=== PATIENT | female | born 1980 | race Asian ===

== ENCOUNTER 2019-07-15 10:04 | Inpatient (IN) | payer OTHER ==
[2019-07-15] MEDS: LACTATED RINGERS 1,000 ML IV STA ×2 (12:27→16:58)
--- NOTE | 2019-07-15 14:46 | ED Physician Documentation ---
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 She has had some persistence of some bleeding she has not had cramping. She did have some cramping last week. Review of Systems Constitutional: reports: Fatigue. denies: Fever Eyes: denies: Decreased vision Ears: denies: Ear pain Nose: denies: Congestion Throat: denies: Sore throat Respiratory: denies: Cough GI: reports: Nausea. denies: Abdominal Pain, Vomiting : denies: Dysuria Skin: denies: Rash Musculoskeletal: reports: Back pain. denies: Neck pain PD PAST MEDICAL HISTORY - Past Surgical History Past Surgical History: No - Allergies Allergies/Adverse Reactions: Allergies Allergy/AdvReac Type Severity Reaction Status Date / Time No Known Drug Allergies Allergy Verified 11/03/16 09:48 - Social History Does the pt smoke?: No Smoking Status: Never smoker Does the pt drink ETOH?: No Does the pt have substance abuse?: No PD ED PE NORMAL - Vitals Vital signs reviewed: Yes (tachy and hypertensive marked. ) - General General: Alert and oriented X 3, Well developed/nourished, Other (in tears and anxious) - HEENT HEENT: Atraumatic, PERRL, EOMI - Respiratory Respiratory: No respiratory distress - Female Female : Sailing Officer present (edvin), Other (There is a firm part palpable just inside the vagina) - Back Back: No CVA TTP - Derm Derm: Normal color, Warm and dry, No rash - Extremities Extremities: No deformity, No edema - Neuro Neuro: Alert and oriented X 3, video game tester 2-12 intact, No motor deficit, No sensory deficit, Normal speech Eye Opening: Spontaneous Motor: Obeys Commands Verbal: Oriented GCS Score: 15 - Psych Psych: Other (mood is anxoius and the affect is labile with crying ) Results - Vitals Vitals: Vital Signs - 24 hr 07/15/19 07/15/19 07/15/19 10:22 11:00 11:15 Temperature 36.8 C Heart Rate 134 H 125 H 119 H Respiratory 20 17 21 Rate Blood Pressure 152/113 H 128/80 128/80 O2 Saturation 97 98 97 07/15/19 07/15/19 07/15/19 11:30 12:00 12:06 Temperature Heart Rate 111 H 117 H 110 H Respiratory 20 18 17 Rate Blood Pressure 142/90 H 144/83 H 144/83 H O2 Saturation 98 98 99 07/15/19 07/15/19 07/15/19 13:00 15:13 16:00 Temperature Heart Rate 112 H 100 120 H Respiratory 17 13 17 Rate Blood Pressure 133/81 H 131/88 H 129/84 H O2 Saturation 99 98 98 Oxygen O2 Source Room air - Labs Labs: Laboratory Tests 07/15/19 15:40 WBC 10.3 RBC 5.00 Hgb 13.2 Hct 41.3 MCV 82.6 MCH 26.4 L MCHC 32.0 RDW 18.9 H Plt Count 217 MPV 11.0 H Neut # (Auto) 7.6 H Lymph # (Auto) 2.0 Wy[place] # (Auto) 0.4 Eos # (Auto) 0.2 Baso # (Auto) 0.0 Absolute Nucleated RBC 0.00 Nucleated RBC % 0.0 - Rads (name of study) ob limited Radiology: Prelim report reviewed (Impression: 1. Chavez intrauterine with established gestational age of 17 weeks 6 days. 2. No cardiac activity detected. Findings suggestive of demise. 3. KAEL: 3.5 cm. oligohydramnios.), EMP read indepedently, See rad report Procedures - Bedside sono Bedside sono by EMP: With use of bedside ultrasound the pelvis is imaged there is a fetus present with a biparietal diameter suggesting a gestational age of 17 weeks and there is no heart activity. There is no motion. PD MEDICAL DECISION MAKING - ED course Complexity details: reviewed old records, reviewed results, re-evaluated patient, considered differential, d/w patient, d/w family, d/w assessment consultant (Dr Toribio [facility] maternal recommends induction as the D&E is an elective scheduled procedure and she will likely deliver spontaeously. ) ED course: 38-year old female with an estimated gestational age of 18 weeks presents with vaginal bleeding and palpable mass in the vagina as well as what appear to be rupture of membranes. On bedside ultrasound she is found to have a nonviable fetus with an estimated gestational age of [address] Contreras our OCCUPATIONAL HEALTH AND SAFETY OFFICER was consulted in the case and after consultation with the patient the patient is preferring a D&E. She is averse to the pain and the emotional toil of labor. We attempted to contact an institution capable of performing 2nd trimester D&E and found that this is not available to be done emergently and not available except at [facility] or . The consulting physician at [facility] Dr. Oliva recommends the patient attempt induction as a procedure would not likely be done for several days. The patient is re-evaluated and she is understanding of the limitations and request we do this as and induction here. Dr. Contreras is consulted again in the case and graciously agrees to care for the patient on the obstetrical collins. Departure - Departure Disposition: [facility] DC/Xfer Clinical Impression: demise before 20 weeks with retention of fetus Discharge Date/Time: 07/15/19 16:10
[2019-07-15] MEDS ORDERED: SODIUM CHLORIDE FLUSH 0.9% 10 ML SYRINGE IVP PRN (15:38)
[2019-07-15] MEDS ORDERED: ONDANSETRON 4 MG/2 ML VIAL IVP PRN (15:38)
[2019-07-15] MEDS ORDERED: ACETAMINOPHEN 1,000 MG/100 ML 100 ML IV PRN (15:58)
[2019-07-15] MEDS ORDERED: GABAPENTIN 300 MG CAPSULE PO STA (15:59)
[2019-07-15] MEDS ORDERED: KETOROLAC 30 MG/ML VIAL IVP PRN (15:59)
[2019-07-15] MEDS ORDERED: LACTATED RINGERS 1,000 ML IV SCH (16:00)
[2019-07-15] MEDS ORDERED: miSOPROStol 100 MCG TABLET VG SCH (16:00)
[2019-07-15] MEDS ORDERED: HYDROmorphone 1 MG/ML CARPUJECT IVP PRN (16:01)
--- NOTE | 2019-07-15 16:07 | HISTORY & PHYSICAL EXAMINATION ---
HPI - Admitted From Admitted from: ED - History of Present Illness HPI Comment/Other: Chief complaint: demise History chief complaint: The patient is a well-developed, well-nourished, 38-year-old female who is a 2 para 1-0-0-1. She is reported to be 16 to 18 weeks . She stated that when she woke this morning she was feeling a lot of pelvic pressure. She then noticed something firm protruding from the vagina. She then noted spontaneous rupture of membranes. She has not had any cramping and denies any vaginal bleeding. She was seen in the emergency room where a bedside ultrasound was performed which revealed a demise.She had no problems with her first and delivered a full-term vaginally. She denies any fevers, chills, nausea, vomiting the patient or diarrhea.To date she has not had any problems with with this . She has been followed at the [facility] for her . She denies any history of pelvic inflammatory disease, gonorrhea, syphilis, chlamydia, herpes, recurrent vaginal infections, trichomonas or abnormal Pap smears. PMH/PSH - Past Medical History Cardiovascular: positive: None Respiratory: positive: None Neuro: positive: None Endocrine/Autoimmune: positive: None GI: positive: None INVESTMENT ASSOCIATE: positive: None : positive: None HEENT: positive: None Psych: positive: None Musculoskeletal: positive: None Derm: positive: None MRSA Hx?: No - Past Surgical History Other past surgical history: None Social & Family Hx - Social History Does the pt smoke?: No Smoking Status: Never smoker Does the pt drink ETOH?: No Does the pt have substance abuse?: No Meds/Allgy - Allergies Allergies/Adverse Reactions: Allergies Allergy/AdvReac Type Severity Reaction Status Date / Time No Known Drug Allergies Allergy Verified 11/03/16 09:48 Review of Systems - Constitutional Constitutional: denies: Fatigue, Fever, Chills, Malaise, Weakness - Eyes Eyes: denies: Pain, Irritation, Amaurosis, Blurred vision, Spots in vision - Ears, Nose & Throat Ears, Nose & Throat: denies: Ear pain, Hearing loss, Hearing aids, Tinnitus, Nasal pain, Nasal discharge, Nosebleeds, Nasal obstruction, Sore throat, Hoarseness, Mouth lesions - Cardiovascular Cariovascular: denies: Irregular heart rate, Palpitations, Chest pain, Edema, Syncope - Respiratory Respiratory: denies: Cough, Sputum production, Wheezing, Hemoptysis, Orthopnea, SOB at rest, SOB with exertion - Gastrointestinal Gastrointestinal: denies: Abdominal pain, Abdominal distention, Constipation, Diarrhea, Change in bowel habits, Rectal bleeding, Nausea, Vomiting - Genitourinary Genitourinary: denies: Dysuria, Frequency, Urgency, Hematuria, Incontinence, Flank pain - Musculoskeletal Musculoskeletal: denies: Muscle pain, Back pain, Muscle aches, Stiffness - Integumentary Integumentary: denies: Rash, Pruritis, Lesions, Lumps - Neurological Neurological: denies: General weakness, Focal weakness, Headache, Dizziness, Numbness - Psychiatric Psychiatric: reports: Depression, Anxiety. denies: Suicidal, Delusions, Hallucinations - Endocrine Endocrine: denies: Polyuria, Polydypsia, Polyphagia, Intolerance to cold, Intolerance to heat - Hematologic/Lymphatic Hematologic/Lymphatic: denies: Anemia, Bruising, Petechiae, Blood clots, Lymphadenopathy Exam - Vital Signs Reviewed Vital Signs: Yes Vital Signs: Vital Signs x48h Temp Pulse Resp BP Pulse Ox 07/15/19 15:13 100 13 131/88 H 98 07/15/19 13:00 112 H 17 133/81 H 99 07/15/19 12:06 110 H 17 144/83 H 99 07/15/19 12:00 117 H 18 144/83 H 98 07/15/19 11:30 111 H 20 142/90 H 98 07/15/19 11:15 119 H 21 128/80 97 07/15/19 11:00 125 H 17 128/80 98 07/15/19 10:22 36.8 C 134 H 20 152/113 H 97 - Physical Exam General Appearance: positive: Mild distress Eyes Bilateral: positive: PERRL, EOMI, No lid inflammation, Conjunctivae nml Neck: positive: Nml inspection, Thyroid nml, No JVD, Trachea midline. negative: Lymphadenopathy (R), Lymphadenopathy (L) Respiratory: positive: Chest non-tender, No respiratory distress, Breath sounds nml. negative: Wheezes, Rales, Rhonchi Cardiovascular: positive: Regular rate & rhythm, No murmur, No gallop Abdomen: positive: Non-tender, No organomegaly, Nml bowel sounds, No distention. negative: Tenderness, Guarding, Rebound Skin: positive: Color nml, No rash, Warm, Dry Extremities: positive: Non-tender, Nml appearance, No pedal edema. negative: Calf tenderness Neurologic/Psychiatric: positive: Oriented x3, Mood/affect nml Impression/Plan - Problem List Problem List: Impression: demise at 16 to 18 weeks gestation Plan: I talked to the patient earlier aboutA medical induction using prostaglandins. The patient at first was not interested. The emergency room physician tried to find any facility that may be willing to do a second trimester and he could not find any. Maternal- medicine at [facility] recommended the medical induction of labor. He went to talk to the patient again. The patient then agreed to come in and have this done. She is therefore being admitted for the above said procedure.
[2019-07-15 16:10] LABS: BASOPHILS % (AUTO) 0.3 %; EOSINOPHILS # (AUTO) 0.2 10^3/uL (0.0-0.7); EOSINOPHILS % (AUTO) 2.1 %; HGB - HEMOGLOBIN 13.2 g/dL (12.0-16.0); LYMPHOCYTES % (AUTO) 19.2 %; MEAN CORPUSCULAR HEMOGLOBIN 26.4 pg (27.0-31.0); MEAN CORPUSCULAR VOLUME 82.6 fL (81.0-99.0); MONOCYTES # (AUTO) 0.4 10^3/uL (0.0-1.0); MONOCYTES % (AUTO) 4.1 %; NEUTROPHILS # (AUTO) 7.6 10^3/uL (1.5-6.6); NEUTROPHILS % (AUTO) 74.1 %; PLT - PLATELET COUNT 217 10^3/uL (130-450); RED CELL DISTRIBUTION WIDTH 18.9 % (12.0-15.0); WHITE BLOOD COUNT 10.3 x10^3/uL (4.8-10.8)
--- NOTE | 2019-07-15 16:47 | Ultrasound Report ---
Reason: confirm demise Procedure Date: 07/15/2019 Accession Number: [id number] / [id number] Procedure: US - OB Limited CPT Code: FULL RESULT: EXAM: LIMITED OBSTETRICAL ULTRASOUND EXAM DATE: 07/15/2019 03:22 PM. CLINICAL HISTORY: Confirm demise. COMPARISON: None. TECHNIQUE: Real-time sonographic evaluation of the fetus performed by the national dedicated truck driver. Multiple personal financial representative static images were saved for review. Additional transvaginal imaging to more accurately evaluate cervical length/placental position/etc. DATING: Established EGA 17 weeks 6 days with MARTHA 1 . GENERAL EVALUATION Chavez . No cardiac activity detected. movement: Visualized. Presentation: Breech Placental position: Anterior. Placental cyst measures 1.9 x 1.9 x 2 cm. Amniotic fluid: KAEL 3.5 cm. MVP 1.9 cm. MATERNAL STRUCTURES Cervix is long and closed. There is a anterior mid uterine intramural fibroid measuring 2.5 x 2.5 x 2.7 cm and a posterior lower uterine intramural fibroid measuring 1.9 x 1.6 x 1.5 cm. IMPRESSION: 1. Chavez intrauterine with established gestational age of 17 weeks 6 days. 2. No cardiac activity detected. 3. Findings suggestive of demise. 4. KAEL: 3.5 cm. Oligohydramnios. RADIA
[2019-07-15] MEDS ORDERED: miSOPROStol 200 MCG TABLET VG ONE (17:00)
[2019-07-15] MEDS ORDERED: SODIUM CHLORIDE FLUSH 0.9% 10 ML SYRINGE IVP SCH (17:00)
[2019-07-15] MEDS ORDERED: miSOPROStol 200 MCG TABLET BC SCH (20:00)
[2019-07-15] MEDS ORDERED: OXYTOCIN/DEXTROSE 5 % 30 UNIT/500 ML BAG IV ONE (21:21)
[2019-07-15] MEDS ORDERED: OXYTOCIN/DEXTROSE 5 % 30 UNIT/500 ML BAG IV PRN (21:28)
--- NOTE | 2019-07-15 21:50 | DELIVERY NOTE ---
Delivery Note - Delivery Comments (Free Text/Narrative) Delivery Comments (Free Text/Narrative): The patient was admitted to the OB unit late this afternoon with a known demise at approximately 17 weeks and 6 days.Her cervix was closed and posterior. There was fluid in the vaginal vault. After the patient was admitted she was given some preinduction medications which included IV acetaminophen, IV Toradol and p.o. gabapentin. She was then administered 800 mcg of misoprostol vaginally. The patient soon began to have some mild cramping. She was due for another dose of misoprostol at 400 mcg buccally at 2100 hrs.However the patient began to feel that she was passing the fetus. Indeed at 2102 hrs. she delivered the stillborn 17-week fetus.The fetus was wrapped in a blanket and given to the mother who wished to hold it.The baby appeared to be a male. The placenta was then delivered with ring forceps and gentle traction at 2128 hrs.This appeared intact. The placenta will be sent. The patient was given 30 units of Pitocin IV drip. Her uterus was firming quite well. The cervix and vaginal vault were inspected and no tears were noted. The cervix was intact.The patient actually was quite comfortable. Lochia at this point in time was late.Estimated blood loss was approximately 100 mL's.The baby was allowed to remain with the mother at this point in the LDRP.She did tolerate the procedure quite well.She was now in stable condition.
[2019-07-15] MEDS ORDERED: IBUPROFEN 600 MG TABLET PO SCH (22:00)
[2019-07-15] MEDS: ACETAMINOPHEN 500 MG TABLET PO SCH (23:18)
--- NOTE | 2019-07-16 07:38 | PROVIDER PROGRESS NOTE ---
Subjective - Prog Note Date Prog Note Date: 07/16/19 Prog Note Time: 07:34 - Subjective Subjective: The patient is doing fairly well this morning. She did pass another small piece of placental tissue. Her bleeding is light at this time.She is really without any complaint.Would like to see the nephrology social worker this morning to talk with them about how to talk with her child at home about the recent demise. Objective - Vital Signs/Intake & Output Vital Signs: Vital Signs x48h Temp Pulse Resp BP Pulse Ox 07/16/19 01:15 98.4 C H 86 16 119/57 L 98 07/16/19 00:15 97.9 C H 92 16 123/81 H 97 Intake & Output: Intake & Output 07/13/19 07/14/19 07/15/19 07/16/19 23:59 23:59 23:59 23:59 Intake Total 681.233 750 Output Total 400 Balance 681.233 350 - Lab Results Fish Bones: 07/15/19 15:40 Other Labs: Lab Results x24hrs 07/15/19 07/15/19 07/15/19 Range/Units 16:00 15:40 15:40 WBC 10.3 (4.8-10.8) x10^3/uL RBC 5.00 (4.20-5.40) 10^6/uL Hgb 13.2 (12.0-16.0) g/dL Hct 41.3 (37.0-47.0) % MCV 82.6 (81.0-99.0) fL MCH 26.4 L (27.0-31.0) pg MCHC 32.0 (32.0-36.0) g/dL RDW 18.9 H (12.0-15.0) % Plt Count 217 (130-450) 10^3/uL MPV 11.0 H (7.9-10.8) fL Neut # (Auto) 7.6 H (1.5-6.6) 10^3/uL Lymph # (Auto) 2.0 (1.5-3.5) 10^3/uL Bonner # (Auto) 0.4 (0.0-1.0) 10^3/uL Eos # (Auto) 0.2 (0.0-0.7) 10^3/uL Baso # (Auto) 0.0 (0.0-0.1) 10^3/uL Absolute Nucleated RBC 0.00 x10^3/uL Nucleated RBC % 0.0 /100WBC Blood Type O POSITIVE Blood Type Recheck O POSITIVE - Other Results/Comments Other Results/Comments: Uterus: Uterus is firm and nontender 3 fingerbreadths below the umbilicus. Assessment/Plan - Problem List (1) demise before 20 weeks with retention of fetus Impression: Impression: day 1-stable Plan: We are going to allow the patient to be discharged home.She was discharged home with both written and verbal instructions which included such things as: 1. She is to forego any lifting, tampons, douching or intercourse. 2. She is to call if she has temperatures greater than 100.4 or heavy vaginal bright red bleeding. She is also to call if she has any increased intense cramping. 3. She does not drive a car for the next week 4. She is to continue her vitamins and increase her fluids. 5. She may use ibuprofen up to 600 mg p.o. 3 times daily as needed cramping 6. She may take a tub bath if she wishes 7. She is going to follow-up with her normal OB physician at the [facility] next week. I will see her in the office in 4 weeks.She will call sooner if she has problems however.
[2019-07-16 07:58] VITALS: BP 129/64
--- NOTE | 2019-07-16 08:10 | DISCHARGE SUMMARY ---
Physician: Tyler Contreras DO DATE OF ADMISSION: 07/15/2019 DATE OF DISCHARGE: 07/16/2019 ADMITTING DIAGNOSIS: demise at 17 weeks 6 days gestation. DISCHARGE DIAGNOSES 1. demise at 17 weeks 6 days gestation. 2. Delivery of demise at 17 weeks 6 days gestation. PROCEDURES 1. Medical induction of labor. 2. Spontaneous vaginal delivery of demise. LABORATORIES: The patient is O positive. CBC revealed WBCs of 10.3, RBC of 5.0, hemoglobin 13.2, he matocrit 41.3 with 217 platelets. HOSPITAL COURSE: Patient awoke the morning of 07/15/2019 with feeling of pelvic pressure. She then felt that there was something bulging into or out of the vagina. Soon after that, she felt a gush of fluid. She was having some mild cramping, but nothing more than that. She did state that, about a week or so before that, she had a couple of days of spotting with some mild cramping, but again nothi ng more. She denied any fevers, chills, nausea, vomiting, constipation or diarrhea. Because of the fluid gush, she went to the emergency room. In the emergency room, an ultrasound was obtained, which revealed a demise. The patient was at 17 weeks 6 days gestation. The patient at first did no t wish a medical induction of labor and wished a surgical evacuation. The emergency room physician sayda singh try to arrange this for her, but could not find placement. [facility]. He discussed this with her again, and she then did agree to a medical induction of labor and was admitted to the obstetric floor. She was given pre procedural medication and 1 dose of vaginal misoprostol 800 mcg. That was at about 1800 hours. At 2 102 hours, she delivered the 17-week demise. The placenta was then delivered at 2128 hours. O ne is referred to the delivery note for full details. She actually did well throughout the night. I n the morning, she did pass 1 small piece of placental tissue. She, after that, was not bleeding muc h. She was ambulating well and tolerating diet well. She did request a meeting with the social work er so she could find out ways she can talk with her young child about the recent demise. She w as stable, and it was felt she could be discharged home, and she did wish to be discharged to home. DISCHARGE INSTRUCTIONS The patient discharged home with written and verbal instructions including such things as 1. She is to forego any lifting, tampons, douching or intercourse. 2. She is to report any temperatures greater than 100.4 or heavy vaginal bleeding or intense crampin g. 3. She is not to drive a car for the next week. 4. She may use ibuprofen up to 600 mg p.o. t.i.d. for cramping. 5. She is to increase her fluids and continue her vitamins. 6. She may take a tub bath. 7. As long as she does well, she will be seen in the office of her regular OB at the [facility] in 1 week. I will see her for a full visit in 4 weeks. She will call sooner if she has a ny other problems. TD: 07/16/2019 07:48
[2019-07-16] MEDS: ACETAMINOPHEN 500 MG TABLET PO SCH (09:00)
== END 2019-07-16 10:00 | disposition home or self-care (01) | DRG 807 ==
LOC: ED 10:04 → FBP 16:04
PROVIDERS: ADMIT Obstetrics & Gynecology; ATTEND Obstetrics & Gynecology
PROC: 10E0XZZ Delivery of Products of Conception, External Approach (ICD-10-PCS; principal; 2019-07-15)
PROC: 3E0P7VZ Introduction of Hormone into Female Reproductive, Via Natural or Artificial Opening (ICD-10-PCS; 2019-07-15)
DX: O02.1 Missed abortion (principal); Z37.1 Single stillbirth
CPT/HCPCS: 36415; 76815; 85025; 86900; 86901; 96360; 96361; 99283; 99285; A9270; J0131; J7120

== ENCOUNTER 2019-07-18 00:27 | Inpatient (IN) | payer OTHER ==
[2019-07-18 00:52] LABS: BASOPHILS % (AUTO) 0.4 %; EOSINOPHILS # (AUTO) 0.2 10^3/uL (0.0-0.7); EOSINOPHILS % (AUTO) 1.8 %; HGB - HEMOGLOBIN 11.2 g/dL (12.0-16.0); LYMPHOCYTES # (AUTO) 1.7 10^3/uL (1.5-3.5); LYMPHOCYTES % (AUTO) 16.6 %; MEAN CORPUSCULAR HEMOGLOBIN 26.8 pg (27.0-31.0); MEAN CORPUSCULAR HGB CONC 32.4 g/dL (32.0-36.0); MEAN CORPUSCULAR VOLUME 82.8 fL (81.0-99.0); MEAN PLATELET VOLUME 9.6 fL (7.9-10.8); MONOCYTES # (AUTO) 0.5 10^3/uL (0.0-1.0); MONOCYTES % (AUTO) 5.2 %; NEUTROPHILS # (AUTO) 7.6 10^3/uL (1.5-6.6); NEUTROPHILS % (AUTO) 75.5 %; PLT - PLATELET COUNT 199 10^3/uL (130-450); RED BLOOD COUNT 4.18 10^6/uL (4.20-5.40)
[2019-07-18 00:52] LABS: BILIRUBIN,URINE NEGATIVE (NEGATIVE); GLUCOSE, URINE (UA) NEGATIVE (NEGATIVE); KETONES,URINE (UA) TRACE mg/dL (NEGATIVE); LEUKOCYTE ESTERASE, URINE TRACE (NEGATIVE); NITRITE,URINE NEGATIVE (NEGATIVE); OCCULT BLOOD,URINE MODERATE (NEGATIVE); PROTEIN,URINE NEGATIVE (NEGATIVE); UROBILINOGEN,URINE 0.2 (NORMAL) E.U./dL (NORMAL)
[2019-07-18 00:54] LABS: CLARITY,URINE CLEAR (CLEAR)
[2019-07-18 00:58] LABS: BACTERIA,URINE Rare /HPF (None Seen); SQUAMOUS EPITHELIAL CELL,UR MOD Squamous (<= Few)
--- NOTE | 2019-07-18 00:58 | ED Physician Documentation ---
PD HPI FEVER - Stated complaint Stated Complaint: FEVER S/P MISCARRIAGE - Chief complaint Chief Complaint: Abd Pain - History obtained from History obtained from: Patient - History of Present Illness Timing - onset: How many hours ago (approximately 1 hour CORPORATE RECRUITER) Timing details: Abrupt onset Pain level now: 3 Associated symptoms: Chills, Rigors Similar symptoms before: Has not had sx before Recently seen: Emergency Dept, Admitted - Additional information Additional information: evaluated in this ED 07/15 and diagnosed with demise (17 w 6 d) and was admitted to [facility], given misoprostol with subsequent passage of POC and placental tissue, discharged the following day (07/16). 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 Friend drove her to ED and at prior to leaving her house, she did not have a fever when friend measured temperature. She has high fever in ED triage. Patient says she still has some vaginal bleeding that is no worse than it had been since discharge from [facility]. She has been experiencing episodic pelvic pain and lower back pain. Last dose of tylenol (which she was taking for pain) was approximately 9 PM. Review of Systems Constitutional: reports: Fever, Chills Cardiac: reports: Reviewed and negative Respiratory: reports: Reviewed and negative GI: reports: Abdominal Pain (pelvic pain). denies: Nausea, Vomiting : denies: Dysuria, Frequency Musculoskeletal: reports: Back pain PD PAST MEDICAL HISTORY - Past Medical History Past Medical History: Yes Cardiovascular: None Respiratory: None Neuro: None Endocrine/Autoimmune: None GI: None EDITORIAL PROJECT MANAGER: None : None HEENT: None Psych: None Musculoskeletal: None Derm: None - Past Surgical History Past Surgical History: No - Present Medications Home Medications: Ambulatory Orders Medication Instructions Recorded Confirmed Pnv No.95/Ferrous Fum/Folic AC 1 each PO DAILY 07/18/19 07/18/19 [ Caplet] - Allergies Allergies/Adverse Reactions: Allergies Allergy/AdvReac Type Severity Reaction Status Date / Time No Known Drug Allergies Allergy Verified 07/18/19 00:48 - Social History Does the pt smoke?: No Smoking Status: Never smoker Does the pt drink ETOH?: No Does the pt have substance abuse?: No - Immunizations Immunizations are current?: Yes PD ED PE NORMAL - Vitals Vital signs reviewed: Yes - General General: Alert and oriented X 3, No acute distress, Well developed/nourished - HEENT HEENT: Moist mucous membranes - Neck Neck: Supple, no meningeal sign - Cardiac Cardiac: No murmur - Respiratory Respiratory: No respiratory distress, Clear bilaterally - Abdomen Abdomen: Soft, Non tender, Non distended - Back Back: No CVA TTP - Derm Derm: Normal color, Warm and dry PD ED PE EXPANDED - Cardiac Cardiac: Tachy, Regular Rhythm Results - Vitals Vitals: Vital Signs - 24 hr 07/18/19 07/18/19 07/18/19 00:31 00:41 01:08 Temperature 39.4 C H Heart Rate 148 H 140 H 123 H Respiratory 24 26 H 22 Rate Blood Pressure 147/105 H 160/78 H O2 Saturation 99 97 100 07/18/19 07/18/19 07/18/19 01:30 02:00 02:25 Temperature 38.1 C H Heart Rate 116 H 123 H Respiratory 18 23 Rate Blood Pressure 144/83 H 117/83 H O2 Saturation 99 97 07/18/19 07/18/19 07/18/19 02:30 03:27 04:00 Temperature 37.4 C Heart Rate 118 H 108 H 115 H Respiratory 19 19 19 Rate Blood Pressure 135/72 H 136/79 H 138/79 H O2 Saturation 97 97 97 07/18/19 04:30 Temperature Heart Rate 117 H Respiratory 19 Rate Blood Pressure 150/98 H O2 Saturation 98 Oxygen O2 Source Room air - Labs Labs: Laboratory Tests 07/18/19 07/18/19 07/18/19 00:40 00:45 00:45 WBC 10.0 RBC 4.18 L Hgb 11.2 L Hct 34.6 L MCV 82.8 MCH 26.8 L MCHC 32.4 RDW 18.0 H Plt Count 199 MPV 9.6 Neut # (Auto) 7.6 H Lymph # (Auto) 1.7 Mcdonald # (Auto) 0.5 Eos # (Auto) 0.2 Baso # (Auto) 0.0 Absolute Nucleated RBC 0.00 Nucleated RBC % 0.0 Sodium 139 Potassium 4.0 Chloride 105 Carbon Dioxide 22 Anion Gap 12.0 BUN 10 Creatinine 0.7 Estimated GFR (MDRD) 95 Glucose 107 H Lactic Acid Calcium 9.2 Total Bilirubin < 0.2 L AST 19 ALT 11 Alkaline Phosphatase 80 Total Protein 7.0 Albumin 3.4 Globulin 3.6 Albumin/Globulin Ratio 0.9 L Lipase 23 HCG, Quant Urine Color YELLOW Urine Clarity CLEAR Urine pH 6.0 Ur Specific [place] 1.015 Urine Protein NEGATIVE Urine Glucose (UA) NEGATIVE Urine Ketones TRACE Urine Occult Blood MODERATE H Urine Nitrite NEGATIVE Urine Bilirubin NEGATIVE Urine Urobilinogen 0.2 (NORMAL) Ur Leukocyte Esterase TRACE H Urine RBC 11-25 H Urine WBC 4-5 Ur Squamous Epith Cells MOD Squamous H Urine Bacteria Rare Ur Microscopic Review INDICATED Urine Culture Comments NOT INDICATED 07/18/19 07/18/19 00:45 00:45 WBC RBC Hgb Hct MCV MCH MCHC RDW Plt Count MPV Neut # (Auto) Lymph # (Auto) Mcdonald # (Auto) Eos # (Auto) Baso # (Auto) Absolute Nucleated RBC Nucleated RBC % Sodium Potassium Chloride Carbon Dioxide Anion Gap BUN Creatinine Estimated GFR (MDRD) Glucose Lactic Acid 2.1 Calcium Total Bilirubin AST ALT Alkaline Phosphatase Total Protein Albumin Globulin Albumin/Globulin Ratio Lipase HCG, Quant 6207.00 Urine Color Urine Clarity Urine pH Ur Specific [place] Urine Protein Urine Glucose (UA) Urine Ketones Urine Occult Blood Urine Nitrite Urine Bilirubin Urine Urobilinogen Ur Leukocyte Esterase Urine RBC Urine WBC Ur Squamous Epith Cells Urine Bacteria Ur Microscopic Review Urine Culture Comments - Rads (name of study) pelvic/TV US Radiology: Prelim report reviewed, See rad report PD MEDICAL DECISION MAKING - ED course Complexity details: reviewed old records, reviewed results, re-evaluated patient, considered differential, d/w patient ED course: D/W Dr. Heath, recommends IV antibiotics and US to investigate possibility of retained POC. Plan is to admit for observation and IV antibiotics regardless of US results. Dr. Heath subsequently evaluated patient in ED and admitted to his service. Departure - Departure Disposition: ED Place in Observation Clinical Impression: Endometritis Condition: Stable Discharge Date/Time: 07/18/19 05:58
[2019-07-18 01:04] LABS: ALBUMIN 3.4 g/dL (3.2-5.5); ALBUMIN/GLOBULIN RATIO 0.9 (1.0-2.2); ALKALINE PHOSPHATASE 80 IU/L (42-121); ALT ALANINE AMINOTRANSFERASE 11 IU/L (10-60); AST ASPARTATE AMINOTRANSFERASE 19 IU/L (10-42); BILIRUBIN,TOTAL < 0.2 mg/dL (0.2-1.0); BUN - BLOOD UREA NITROGEN 10 mg/dL (6-20); CALCIUM 9.2 mg/dL (8.5-10.3); CARBON DIOXIDE - CO2 22 mmol/L (21-32); CHLORIDE 105 mmol/L (101-111); CREATININE 0.7 mg/dL (0.4-1.0); GFR - MDRD 95 (>89); GLUCOSE 107 mg/dL (70-100); LIPASE 23 U/L (22-51); SODIUM 139 mmol/L (135-145)
[2019-07-18] MEDS ORDERED: SODIUM CHLORIDE 0.9% 1,000 ML IV STA (01:33)
[2019-07-18] MEDS ORDERED: ACETAMINOPHEN 1,000 MG/100 ML 100 ML IV STA (01:33)
[2019-07-18] MEDS ORDERED: SODIUM CHLORIDE 0.9% IV STA (01:35)
[2019-07-18] MEDS ORDERED: CLINDAMYCIN 900 MG/50 ML 50 ML IV STA (01:35)
[2019-07-18] MEDS ORDERED: GENTAMICIN IV STA (01:35)
--- NOTE | 2019-07-18 03:52 | Ultrasound Report ---
Reason: pelvic pain, R Procedure Date: 07/18/2019 Accession Number: [id number] / [id number] Procedure: US - Pelvic w/Transvag+Doppler Comp CPT Code: FULL RESULT: EXAM: PELVIC ULTRASOUND EXAM DATE: 07/18/2019 03:36 AM. CLINICAL HISTORY: Miscarriage 2 days ago, now febrile. Pelvic pain, R. COMPARISON: OB LIMITED 07/15/2019 3:21 PM. TECHNIQUE: Realtime transabdominal pelvic scan performed to identify the uterus and adnexa and as an overview of other pelvic structures, followed by transvaginal scan to provide greater detail of the uterus and adnexa, with static image documentation. FINDINGS: Uterus: 15.8 x 11.1 x 12.6 cm, volume 1155.7 cc. Anteverted position. Fibroids are present anteriorly on the right measuring 2.7 x 1.6 x 2.3 cm, anteroinferiorly measuring 2.9 x 2.8 x 2.5 cm and posteriorly measuring 1.7 x 1.7 x 1.8 cm. Endometrium: Previously seen intrauterine gestation is no longer definitively visualized. Endometrium is heterogeneous and thickened with increased vascularity/color flow within midportion of endometrium. Endometrium measures up to 1.9 cm. Difficult to delineate margins of endometrium. Cervix: Unremarkable as visualized. Right Ovary/Adnexa: Right ovary not seen due to overlying bowel gas. Adnexa appears unremarkable as visualized. Left Ovary/Adnexa: Left ovary not seen due to overlying bowel gas. Adnexa appears unremarkable as visualized. Free Fluid: None. IMPRESSION: 1. Previously seen intrauterine gestation longer visualized consistent with stated history of recent miscarriage. 2. Thickened heterogeneous endometrium with increased vascularity/flow within midportion of endometrium. Findings are suspicious for retained products of conception. 3. Ovaries not seen. RADIA
[2019-07-18] MEDS ORDERED: ACETAMINOPHEN 325 MG TABLET PO PRN (04:55)
[2019-07-18] MEDS ORDERED: oxyCODONE 5 MG TABLET PO PRN ×2 (04:55→11:47)
[2019-07-18] MEDS ORDERED: ONDANSETRON 4 MG/2 ML VIAL IVP PRN ×2 (04:55→11:47)
[2019-07-18] MEDS ORDERED: DEXTROSE 5%-0.45% NACL 1,000 ML IV SCH (05:00)
[2019-07-18] MEDS: SODIUM CHLORIDE FLUSH 0.9% 10 ML SYRINGE IVP PRN ×4 (06:15→14:40)
--- NOTE | 2019-07-18 06:41 | PREOP HISTORY & PHYSICAL ---
DATE OF SERVICE: 07/18/2019 Physician: Doni Heath MD IDENTIFICATION: A 38-year-old G2, P1, AB1 female who recently had a 17-week miscarriage with induction with Cervidil on 07/15/2019. CHIEF COMPLAINT: Chills and rigors. HISTORY OF PRESENT ILLNESS: Patient awakened this morning with chills and uncontrollable rigors. She had multiple blankets placed, called the nurse line, and was told to present to the emergency department. She denies any pelvic pain at this particular time. She is noted to have recently had a cervical induction with Cervidil for a 17-week missed Ab. She did quite well following this up until tonight. She denies any intercourse following surgery. She denies any heavy bleeding. PAST MEDICAL HISTORY: Patient denies any hypertensive, diabetic, cardiac, or pulmonary disease. PAST SURGICAL HISTORY: None. ALLERGIES: NONE KNOWN. CURRENT MEDICATIONS: vitamins and Tylenol. HABITS: Patient denies use of alcohol, tobacco, street or addictive drugs. 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 FAMILY HISTORY: Noncontributory. PHYSICAL EXAMINATION VITAL SIGNS: On admission, her temperature was 37.4; with the administration of Tylenol, it has come back down, as well as gentamicin and clindamycin, has come to 37.4. On admission, her pulse was 148 and now has dropped to 108; blood pressure initially was 147/105, now is 136/76. HEENT: Pupils are equal and round. Extraocular muscles are intact. Thyroid is not palpably enlarged. HEART: Regular rate and rhythm without murmur. LUNGS: Lung reaves are clear without rales or wheezes. BACK: No spinal or CVA tenderness noted. ABDOMEN: Soft, nontender with minimal discomfort in the suprapubic region. PELVIC: Examination reveals a uterus that is tender to palpation. She has had an ultrasound that shows a uterus which is measuring 15.8 x 11.1 x 12.6 cm. She is noted to have 2 fibroids, one is 2.7 x 1.6 x 2.3, and the other is 2.9 x 2.8 x 2.5. Upon reviewing the ultrasound, she appears to have tissue in the volume of 3.2 x 5.0 cm in size. LABORATORIES: White count of 10.0 with neutrophils of 7.6, hemoglobin is 11.2, hematocrit is 34.6, platelets are 119. Her electrolytes are essentially within normal limits. Urinalysis shows occult blood, RBCs 11-25, WBCs 2.5 with contamination of squamous epithelial cells. IMPRESSION 1. A 38-yo G2, P1, AB 1 status post induction with prostaglandin for an 11-week miscarriage. 2. Probable endomyometritis with retained products of conception. PLAN: We will administer IV antibiotics. We will take to the operating room, at which time we will perform a sharp and suction D and C with possible hysteroscopy. TD: 07/18/2019 05:13 MTDD
[2019-07-18] MEDS: POLYETHYLENE GLYCOL 3350 17 GM PACKET PO SCH (08:26)
[2019-07-18] MEDS: SODIUM CHLORIDE FLUSH 0.9% 10 ML SYRINGE IVP SCH ×2 (08:26→17:20)
[2019-07-18] MEDS: CLINDAMYCIN 900 MG/50 ML 50 ML IV SCH ×3 (08:26→20:30)
--- NOTE | 2019-07-18 09:08 | ANESTHESIA ---
Pre-Anesthesia VS, & Labs - Diagnosis Retained products of conception, fever - Procedure D&C Vital Signs: Temp Pulse Resp BP Pulse Ox 38.4 C H 115 H 18 140/76 H 98 07/18/19 07:50 07/18/19 07:50 07/18/19 07:50 07/18/19 07:50 07/18/19 07:50 Height 5 ft 5 in Weight (kg) 98 kg Body Mass Index 35.9 - NPO Last Fluid Intake: Apple Juice 4oz - Is Patient ?: No - Lab Results Current Lab Results: Laboratory Tests 07/18/19 00:45: HCG, Quant 6207.00 07/18/19 00:45: Lactic Acid 2.1 07/18/19 00:45: Sodium 139, Potassium 4.0, Chloride 105, Carbon Dioxide 22, Anion Gap 12.0, BUN 10, Creatinine 0.7, Estimated GFR (MDRD) 95, Glucose 107 H, Calcium 9.2, Total Bilirubin < 0.2 L, AST 19, ALT 11, Alkaline Phosphatase 80, Total Protein 7.0, Albumin 3.4, Globulin 3.6, Albumin/Globulin Ratio 0.9 L, Lipase 23 07/18/19 00:45: WBC 10.0, RBC 4.18 L, Hgb 11.2 L, Hct 34.6 L, MCV 82.8, MCH 26.8 L, MCHC 32.4, RDW 18.0 H, Plt Count 199, MPV 9.6, Neut # (Auto) 7.6 H, Lymph # (Auto) 1.7, [place] # (Auto) 0.5, Eos # (Auto) 0.2, Baso # (Auto) 0.0, Absolute Nucleated RBC 0.00, Nucleated RBC % 0.0 Fish Bones: 07/18/19 00:45 07/18/19 00:45 Home Medications and Allergies Home Medications: Ambulatory Orders Pnv No.95/Ferrous Fum/Folic AC [ Caplet] 1 each PO DAILY 07/18/19 Active Medications Acetaminophen (Tylenol) 650 mg PO Q4HR PRN PRN Reason: Pain 1 to 4 Clindamycin Phosphate (Cleocin 900 Mg/50 Ml) 50 mls @ 50 mls/hr IV Q6H VIJAYA Last Admin: 07/18/19 08:26 Dose: 50 mls/hr Dextrose/Sodium Chloride (D5.45ns) 1,000 mls @ 100 mls/hr IV .Q10H PENDING SALE TO [facility] Last Admin: 07/18/19 06:15 Dose: 100 mls/hr Gentamicin Sulfate 140 mg/ (Sodium Chloride) 103.5 mls @ 100 mls/hr IV Q8H PENDING SALE TO [facility] Ondansetron HCl (Zofran Inj) 4 mg IVP Q6HR PRN PRN Reason: Nausea / Vomiting Oxycodone HCl (Roxicodone) 5 mg PO Q4HR PRN PRN Reason: Pain 5 to 7 Polyethylene Glycol (Miralax) 17 gm PO DAILY PENDING SALE TO [facility] Last Admin: 07/18/19 08:26 Dose: Not Given Sodium Chloride (Normal Saline Flush 0.9%) 10 ml IVP PRN PRN PRN Reason: NEEDED PER PROVIDER ORDERS Last Admin: 07/18/19 06:15 Dose: 10 ml Sodium Chloride (Normal Saline Flush 0.9%) 10 ml IVP 0100,0900,1700 PENDING SALE TO [facility] Last Admin: 07/18/19 08:26 Dose: 10 ml Pnv No.95/Ferrous Fum/Folic AC [ Caplet] 1 each PO DAILY 07/18/19 Allergies/Adverse Reactions: Allergies Allergy/AdvReac Type Severity Reaction Status Date / Time No Known Drug Allergies Allergy Verified 07/18/19 00:48 Anes History & Medical History - Anesthetic History Family history of Anesthesia Complications: Denies Family history of Malignant Hyperthermia: Denies - Medical History Cardiovascular: reports: None Pulmonary: reports: None Gastrointestinal: reports: None Urinary: reports: None Neuro: reports: None Musculoskeletal: reports: None Endocrine/Autoimmune: reports: None Blood Disorders: reports: Anemia Skin: reports: None Smoking Status: Former smoker (Quit 5 years ago) Psychosocial: reports: No issues indicated - Surgical History Dermatologic: Other Exam General: Alert, Oriented x3, Cooperative, No acute distress Dental: WNL Mouth Openin Fingerbreadth Neck Mobility: Normal Mallampati classification: II Thyromental Distance: greater than 6 cm Respiratory: Lungs clear, Normal breath sounds, No respiratory distress, No accessory muscle use Cardiovascular: Regular rate, Normal S1, Normal S2, No murmurs Mental/Cognitive Status: Alert/Oriented X3, Normal for patient Plan Anesthesia Type: General Consent for Procedure(s) Verified and Reviewed: Yes Code Status: Attempt Resuscitation ASA classification: 2-Mild systemic disease Is this case an emergency?: Yes
[2019-07-18] MEDS ORDERED: LIDOCAINE 1%-EPI 1:100000 20 ML MDV ONE (09:58)
[2019-07-18] MEDS ORDERED: GENTAMICIN IV SCH ×2 (10:00→21:00)
[2019-07-18] MEDS ORDERED: SODIUM CHLORIDE 0.9% IV SCH ×4 (10:00→21:00)
[2019-07-18] MEDS ORDERED: GENTAMICIN 140 MG in SODIUM CHLORIDE 0.9% 50 ML IV SCH (10:00)
[2019-07-18] MEDS ORDERED: METHYLERGONOVINE 0.2 MG/ML AMP ONE (10:41)
[2019-07-18] MEDS ORDERED: CARBOPROST TROMETHAMINE 250 MCG/ML AMP IM ONE (10:41)
[2019-07-18] MEDS ORDERED: SODIUM CHLORIDE 0.9% 1,000 ML IV SCH (11:00)
[2019-07-18] MEDS ORDERED: GENTAMICIN PER PHARMACY IV SCH ×2 (11:00→12:00)
[2019-07-18] MEDS ORDERED: LACTATED RINGERS 1,000 ML IV ONE ×3 (11:00→11:16)
[2019-07-18] MEDS ORDERED: SODIUM CHLORIDE 0.9% 1,000 ML IV ONE (11:01)
[2019-07-18 11:10] LABS: HGB - HEMOGLOBIN 8.2 g/dL (12.0-16.0)
[2019-07-18] MEDS ORDERED: KETOROLAC 15 MG/ML VIAL ONE (11:44)
[2019-07-18] MEDS ORDERED: HYDROmorphone 0.5 MG/0.5 ML SYRINGE ONE (11:45)
[2019-07-18] MEDS ORDERED: ACETAMINOPHEN 500 MG TABLET PO SCH (12:00)
[2019-07-18] MEDS ORDERED: AMPICILLIN/SULBACTAM 3 GM in SODIUM CHLORIDE 0.9% MINIBAG 100 ML IV SCH (12:00)
--- NOTE | 2019-07-18 12:01 | OPERATIVE REPORT ---
Operative Report - General Admit Date: 07/18/19 Procedure Date: 07/18/19 Planned Procedure: Sharp and suction D&C Pre-Op Diagnosis: retained POC Procedure Performed: Same Post Op Diagnosis: Same - Procedure Note Anesthesia Technique: General ET tube Pathology: RPOC IV Fluids (mL): 2,600 Estimated Blood Loss (mL): 2,000 Indications: retained POC endomyometritis Findings: uterus sounded to 13 cm with moderate amount of tissue Complications: Hemorrhagia
[2019-07-18] MEDS: LACTATED RINGERS 1,000 ML IV SCH ×2 (12:32→19:54)
--- NOTE | 2019-07-18 12:47 | CONSULTATION NOTE ---
Referring Provider Name of Referring Provider:: Dr. Doni Heath Consult Date: 07/18/19 Chief Complaint - Chief Complaint Chief Complaint: Chills History of Present Illness - Admitted From Admitted From:: Home - History Obtained From Records Reviewed: Yes History obtained from: Patient, Friend, poultry hatchery supervisor Physician, EMR Exam Limitations: Patient lethargic postop - History of Present Illness HPI Comment/Other: Consult was requested by Dr. Doni Heath for acute blood loss anemia. This is a 38 year old female with no significant past medical history who was admitted last night to the poultry hatchery supervisor service for endometritis. The patient unfortunately had a miscarriage of her 17 weeks fetus two days ago. She was admitted at that time for induction of labor. At that time she was administered 800mch of misoprostol for induction. She received oxytocin after de livery of the fetus and placenta. Estimated blood loss at that time was 100mL. The patient was discharged on the to home and was doing well until she developed significant rigors yesterday evening. She returned to the emergency department last night where a transvaginal ultrasound was completed and there was concern for retained products of conception. At that time, she was febrile with a temperature as high as 39.8 and tachycardic in the 130's. She was admitted and started on Clindamycin and Gentamicin. She went to the OR this morning for D&C and hysteroscopy. This was complicated by 2,000mL of estimated blood loss. The patient became hypotensive while in the OR and pressures dropped to the 70's systolic. She received 2 units of PRBC (O-) and 2L of crystalloid with improvement in her blood pressure. Her hemoglobin postoperatively decreased to 8.2 from 11.2 despite the transfusion. She also received 2 units of FFP and tranexamic acid. Medicine was consulted to evaluate the patient for ICU admission given the acute blood loss anemia. I met with the patient and her friend at bedside. The patient is lethargic postoperatively but states that her pain is controlled. She denies nausea, vomiting, abdominal pain, chest pain, and dyspnea. She reports no longer feeling febrile but she is fatigued. The nurse reports that the patient's last pad was slightly blood tinged. History - Past Medical History Cardiovascular: reports: None Respiratory: reports: None Neuro: reports: None Endocrine/Autoimmune: reports: None GI: reports: None TRANSFER TABLE OPERATOR: reports: Miscarriage(s) : reports: None HEENT: reports: None Psych: reports: None Musculoskeletal: reports: None Derm: reports: None MRSA Hx?: No - Past Surgical History /TRANSFER TABLE OPERATOR: reports: Dilation and currettage - Family & Social History Family History Comment/Other: Patient denies any family history. Living arrangement: At home Social History Notes: She currently resides on [facility] with her and 9 year old child. Her is currently deployed in the [place] but is returning in a couple of days. She is a stay at home mom. She does not smoke, drink alcohol or use illicit drugs. - Substance History Use: Uses substance without health or social issues: NONE - POLST Patient has POLST: No Meds/Allgy - Home Medications Home Medications: Ambulatory Orders Medication Instructions Recorded Confirmed Pnv No.95/Ferrous Fum/Folic AC 1 each PO DAILY 07/18/19 07/18/19 [ Caplet] - Allergies Allergies/Adverse Reactions: Allergies Allergy/AdvReac Type Severity Reaction Status Date / Time No Known Drug Allergies Allergy Verified 07/18/19 00:48 Review of Systems - Constitutional Constitutional: reports: Fatigue, Chills, Weakness, Poor appetite. denies: Fever - Cardiovascular Cariovascular: denies: Chest pain, Exertional dyspnea - Respiratory Respiratory: denies: SOB at rest, SOB with exertion - Gastrointestinal Gastrointestinal: reports: Poor appetite. denies: Abdominal pain, Nausea, Vomiting - Genitourinary Genitourinary: denies: Dysuria, Frequency, Urgency - Integumentary Integumentary: denies: Rash - Neurological Neurological: reports: General weakness. denies: Focal weakness - Hematologic/Lymphatic Hematologic/Lymphatic: denies: Bleeding tendencies - All Other Systems All Other Systems: reports: Reviewed and negative Exam - Vital Signs Reviewed Vital Signs: Yes Vital Signs: Vital Signs x48h Temp Pulse Pulse Resp BP BP BP 07/18/19 12:31 37.3 C 07/18/19 12:17 112 H 19 131/74 H 07/18/19 12:03 96 129/77 07/18/19 11:52 38.2 C H 94 16 122/71 07/18/19 11:47 38.4 C H 93 16 07/18/19 11:42 38.5 C H 91 14 131/66 H 07/18/19 11:37 38.5 C H 90 16 07/18/19 11:28 38.3 C H 99 16 131/65 H 07/18/19 11:23 38 C H 99 16 135/93 H 07/18/19 11:18 37.8 C H 100 16 128/60 07/18/19 11:12 37.5 C 101 H 16 120/64 07/18/19 07:50 38.4 C H 115 H 18 140/76 H 07/18/19 06:03 37.7 C H 121 H 20 145/85 H 07/18/19 05:00 37.4 C 110 H 17 138/74 H Pulse Ox 07/18/19 12:31 07/18/19 12:17 97 07/18/19 12:03 97 07/18/19 11:52 99 07/18/19 11:47 99 07/18/19 11:42 99 07/18/19 11:37 100 07/18/19 11:28 99 07/18/19 11:23 99 07/18/19 11:18 100 07/18/19 11:12 100 07/18/19 07:50 98 07/18/19 06:03 97 07/18/19 05:00 98 - Physical Exam General Appearance: positive: No acute distress, Lethargic Eyes Bilateral: positive: Normal inspection, Conjunctivae nml ENT: positive: ENT inspection nml Neck: positive: Nml inspection Respiratory: positive: No respiratory distress, Breath sounds nml. negative: Wheezes, Rales, Rhonchi Cardiovascular: positive: Regular rate & rhythm, No murmur, Tachycardia. negative: Bradycardia, Systolic murmur Abdomen: positive: Non-tender, Nml bowel sounds, No distention. negative: Tenderness, Guarding, Rebound Skin: positive: Color nml, No rash, Warm, Dry Extremities: positive: No pedal edema. negative: Pedal edema Neurologic/Psychiatric: positive: Oriented x3, Sensation nml. negative: Disoriented to person, Disoriented to place, Disoriented to time Conclusion/Plan - Diagnosis Diagnosis: 1) Acute blood anemia. 2) endometritis. 3) Retained products of conception s/p D&C - Plan Plan: She had significant blood loss as evident by the 2L of EBL during the D&C. Her hemoglobin had decreased to 8.2 from 11.2 and this was after she received 2U of PRBC. Her blood pressure is stable in the 130's but she remains tachycardic in the low 100's. No current evidence of significant bleeding although her last pad was blood tinged which is not surprising given the recent D&C. Dr. Heath did speak with me and I agree that she requires close monitoring. I will transfer her to the ICU for close observation where she will be under the Medicine service. She does not require further transfusions at this time but I will check CBC's every 8 hours. Will also check an INR to rule out coagulopathy. A type and screen has been ordered. I will transfuse her PRBC's and possibly FFP if she has significant bleeding or develops hemodynamic instability. With regards to the endometritis, she has already been started on Clindamycin and Getamicin. She has remained persistently febrile since her admission. I did speak with Dr. Heath regarding antibiotics and agree that adding Unasyn would be appropriate given her persistent fevers. Will look to de- escalate antibiotics over next 24 hours if her fever resolves to Clindamycin/Gentamicin. Will continue IV hydration with LR given that she is postop and has a poor appetite. - Lab Results Lab results reviewed: Yes Ricardo Bones: 07/18/19 10:45 07/18/19 00:45 - Diagnostic Imaging Results Diagnostic Imaging Results: positive: Final report reviewed
[2019-07-18] MEDS: KETOROLAC 30 MG/ML VIAL IVP SCH ×2 (12:48→18:05)
[2019-07-18] MEDS: AMPICILLIN/SULBACTAM 3 GM in SODIUM CHLORIDE 0.9% MINIBAG 100 ML IV SCH ×2 (14:09→19:56)
[2019-07-18] MEDS: CHERRY SYRUP 10 ML UDC PO SCH ×2 (14:18→22:09)
[2019-07-18] MEDS: METHYLERGONOVINE 0.2 MG/ML AMP PO SCH ×2 (14:18→22:10)
[2019-07-18] MEDS: SIMETHICONE CHEW 80 MG TABLET PO SCH ×2 (14:25→22:10)
[2019-07-18 15:38] LABS: BASOPHILS % (AUTO) 0.2 %; EOSINOPHILS # (AUTO) 0.1 10^3/uL (0.0-0.7); EOSINOPHILS % (AUTO) 0.5 %; HGB - HEMOGLOBIN 11.1 g/dL (12.0-16.0); LYMPHOCYTES # (AUTO) 0.7 10^3/uL (1.5-3.5); LYMPHOCYTES % (AUTO) 5.7 %; MEAN CORPUSCULAR HEMOGLOBIN 27.8 pg (27.0-31.0); MEAN CORPUSCULAR HGB CONC 33.1 g/dL (32.0-36.0); MONOCYTES # (AUTO) 0.2 10^3/uL (0.0-1.0); MONOCYTES % (AUTO) 1.8 %; NEUTROPHILS # (AUTO) 11.1 10^3/uL (1.5-6.6); PLT - PLATELET COUNT 157 10^3/uL (130-450); RED BLOOD COUNT 3.99 10^6/uL (4.20-5.40); RED CELL DISTRIBUTION WIDTH 16.9 % (12.0-15.0); WHITE BLOOD COUNT 12.3 x10^3/uL (4.8-10.8)
[2019-07-18 16:02] LABS: INR 1.2 (0.8-1.2); PT - PROTHROMBIN TIME 13.7 secs (9.9-12.6)
[2019-07-18] MEDS: SACCHAROMYCES BOULARDII 250 MG CAPSULE PO SCH (17:21)
[2019-07-18] MEDS: GENTAMICIN IV SCH (18:40)
[2019-07-18] MEDS: ACETAMINOPHEN 500 MG TABLET PO SCH (18:40)
[2019-07-18] MEDS: SODIUM CHLORIDE 0.9% IV SCH (18:40)
[2019-07-18 20:32] LABS: MEAN CORPUSCULAR HEMOGLOBIN 27.6 pg (27.0-31.0); MEAN CORPUSCULAR VOLUME 83.7 fL (81.0-99.0); MEAN PLATELET VOLUME 9.8 fL (7.9-10.8); RED BLOOD COUNT 3.62 10^6/uL (4.20-5.40); RED CELL DISTRIBUTION WIDTH 17.2 % (12.0-15.0); WHITE BLOOD COUNT 10.4 x10^3/uL (4.8-10.8)
[2019-07-18] MEDS: DOCUSATE SODIUM 100 MG CAPSULE PO SCH (20:40)
--- NOTE | 2019-07-18 23:44 | OPERATIVE REPORT ---
DATE OF SERVICE: 07/18/2019 Physician: Doni Heath MD PREOPERATIVE DIAGNOSES 1. Status post spontaneous miscarriage at 17 weeks. 2. Endomyometritis. 3. Retained products of conception. POSTOPERATIVE DIAGNOSES 1. Status post spontaneous miscarriage at 17 weeks. 2. Endomyometritis. 3. Retained products of conception. 4. Intra operative hemorrhagia PROCEDURE: Sharp and suction D and C. SURGEON: Doni Heath MD ANESTHESIA: General via endotracheal tube with Mary Pillo AUTOTRANSFUSIONIST. ESTIMATED BLOOD LOSS: 2000 mL IV FLUIDS: 2600 mL. Two units of packed red blood cells of O negative. FINDINGS: Pelvic examination under anesthesia revealed the uterus was anterior. The cervix was noted to be patent at time of the procedure, and the uterus sounded to 13 cm. DESCRIPTION OF PROCEDURE: Following adequate endotracheal anesthesia, the patient was placed in dorsal lithotomy position. Following a timeout, the procedure was commenced. At this point, a bleed kit was called for. The cervix was noted to sound to 13 cm, it already dilated up to size 12 mm. At this point, a curved suction catheter was placed in the uterus, and the suction was applied. It was rotated and gradually withdrawn in a rotary fashion. A moderate to large amount of dark tissue was removed. A second pass was performed, and more tissue was removed. The endometrial cavity was curetted sharply in all 4 quadrants. The suction catheter was placed one more time. At this point, the cervix was noted to have a large amount of bleeding, which continued. Methergine was called for, given IM. The bleeding continued, so Hemabate was injected IM. The bleeding continued unabated. So for this reason, type and screen was ordered, but when it was noted that the bleeding was still very rapid, 2 units of O negative were called for. The patient received 1 gm TXA. The bleeding did eventually carmelina. At this point, the bleeding was measured both in the canister as well as the suction, and 1 liter was found in each of these devices. The cervix was observed, and there was no evidence of any further bleeding. At this point, the patient did receive 2 units of packed red blood cells. The patient stabilized, her pressures normalized. Her O2 saturation remained normal throughout the entire episode. The cervix was released from the single-tooth tenaculum. There was no evidence of any further bleeding. The patient was taken out of the [facility] and then transferred to the [facility]. She tolerated the procedure well. Her sponge and needle counts were correct. TD: 07/18/2019 13:26 KANE
[2019-07-19] MEDS: SODIUM CHLORIDE FLUSH 0.9% 10 ML SYRINGE IVP SCH ×4 (00:13→17:12)
[2019-07-19] MEDS: KETOROLAC 30 MG/ML VIAL IVP SCH ×5 (00:29→23:45)
[2019-07-19 00:35] LABS: HGB - HEMOGLOBIN 9.5 g/dL (12.0-16.0); MEAN CORPUSCULAR HEMOGLOBIN 27.7 pg (27.0-31.0); MEAN CORPUSCULAR HGB CONC 32.6 g/dL (32.0-36.0); MEAN CORPUSCULAR VOLUME 84.8 fL (81.0-99.0); MEAN PLATELET VOLUME 9.7 fL (7.9-10.8); RED BLOOD COUNT 3.43 10^6/uL (4.20-5.40); RED CELL DISTRIBUTION WIDTH 17.1 % (12.0-15.0); WHITE BLOOD COUNT 8.1 x10^3/uL (4.8-10.8)
[2019-07-19] MEDS: AMPICILLIN/SULBACTAM 3 GM in SODIUM CHLORIDE 0.9% MINIBAG 100 ML IV SCH ×2 (01:35→10:55)
[2019-07-19] MEDS: CLINDAMYCIN 900 MG/50 ML 50 ML IV SCH ×4 (02:10→19:55)
[2019-07-19] MEDS: SODIUM CHLORIDE 0.9% IV SCH ×3 (03:16→18:46)
[2019-07-19] MEDS: GENTAMICIN IV SCH ×3 (03:16→18:46)
[2019-07-19] MEDS: ACETAMINOPHEN 500 MG TABLET PO SCH ×3 (05:11→18:45)
[2019-07-19 05:23] LABS: BASOPHILS % (AUTO) 0.3 %; EOSINOPHILS % (AUTO) 0.1 %; HGB - HEMOGLOBIN 8.5 g/dL (12.0-16.0); LYMPHOCYTES # (AUTO) 1.3 10^3/uL (1.5-3.5); LYMPHOCYTES % (AUTO) 20.1 %; MEAN CORPUSCULAR HEMOGLOBIN 27.8 pg (27.0-31.0); MEAN CORPUSCULAR HGB CONC 32.7 g/dL (32.0-36.0); MONOCYTES # (AUTO) 0.5 10^3/uL (0.0-1.0); NEUTROPHILS # (AUTO) 4.8 10^3/uL (1.5-6.6); NEUTROPHILS % (AUTO) 71.8 %; PLT - PLATELET COUNT 146 10^3/uL (130-450); RED BLOOD COUNT 3.06 10^6/uL (4.20-5.40); RED CELL DISTRIBUTION WIDTH 17.3 % (12.0-15.0); WHITE BLOOD COUNT 6.7 x10^3/uL (4.8-10.8)
[2019-07-19 05:38] LABS: CALCIUM 7.7 mg/dL (8.5-10.3); CREATININE 0.5 mg/dL (0.4-1.0); MAGNESIUM 1.7 mg/dL (1.7-2.8); PHOSPHORUS 3.9 mg/dL (2.5-4.6)
[2019-07-19] MEDS: METHYLERGONOVINE 0.2 MG/ML AMP PO SCH ×3 (06:19→22:02)
[2019-07-19] MEDS: CHERRY SYRUP 10 ML UDC PO SCH ×3 (06:19→22:02)
[2019-07-19] MEDS: SIMETHICONE CHEW 80 MG TABLET PO SCH ×3 (06:19→22:02)
[2019-07-19] MEDS ORDERED: POTASSIUM CHLORIDE 20 MEQ TABLET PO ONE (07:10)
[2019-07-19] MEDS ORDERED: MAGNESIUM SULFATE 2 GRAM 2 GM/50 ML BAG IV ONE (07:11)
--- NOTE | 2019-07-19 08:02 | PROVIDER PROGRESS NOTE ---
Subjective - General Admit Date: 07/18/19 Procedure Date: 07/18/19 Post Op Days: 1 Procedure Performed: Sharp and Suction D&C - Review of Systems General: positive: No symptoms (Pain 0/10, scant bleeding), Fever HEENT: positive: No symptoms Pulmonary: positive: No symptoms Cardiovascular: positive: No symptoms Gastrointestinal: positive: No symptoms, Flatus Genitourinary: positive: No symptoms Musculoskeletal: positive: No symptoms All Other Systems: positive: Reviewed and negative Objective - Patient Data Reviewed Vital Signs: Yes Vital Signs: Vital Signs x48h Temp Pulse Resp BP Pulse Ox 07/19/19 07:48 36.9 C 95 14 07/19/19 07:00 84 13 117/81 H 99 07/19/19 06:00 78 17 108/64 100 07/19/19 05:00 36.6 C 56 L 14 109/64 100 07/19/19 04:00 55 L 14 104/67 99 07/19/19 03:00 68 15 117/73 99 07/19/19 02:00 61 15 125/80 97 07/19/19 01:00 70 17 115/65 98 Weight: Weight 07/17/19 07/18/19 07/19/19 23:59 23:59 23:59 Weight (kg) 98 kg Intake & Output: Intake and Output Totals x24h 07/17/19 07/18/19 07/19/19 23:59 23:59 23:59 Intake Total 3963.833 453.5 Output Total 1939 250 Balance 2024.833 203.5 - Lab Results Lab Results: 07/19/19 05:10 07/19/19 05:10 Other Lab Results: Lab Results x24hrs 07/19/19 07/19/19 07/19/19 Range/Units 05:10 05:10 05:10 WBC (4.8-10.8) x10^3/uL RBC (4.20-5.40) 10^6/uL Hgb (12.0-16.0) g/dL Hct (37.0-47.0) % MCV (81.0-99.0) fL MCH (27.0-31.0) pg MCHC (32.0-36.0) g/dL RDW (12.0-15.0) % Plt Count (130-450) 10^3/uL MPV (7.9-10.8) fL Neut # (Auto) (1.5-6.6) 10^3/uL Lymph # (Auto) (1.5-3.5) 10^3/uL [place] # (Auto) (0.0-1.0) 10^3/uL Eos # (Auto) (0.0-0.7) 10^3/uL Baso # (Auto) (0.0-0.1) 10^3/uL Absolute Nucleated RBC x10^3/uL Nucleated RBC % /100WBC PT (9.9-12.6) secs INR (0.8-1.2) Sodium 141 (135-145) mmol/L Potassium 3.3 L (3.5-5.0) mmol/L Chloride 111 (101-111) mmol/L Carbon Dioxide 23 (21-32) mmol/L Anion Gap 7.0 (6-13) BUN 7 (6-20) mg/dL Creatinine 0.5 (0.4-1.0) mg/dL Estimated GFR (MDRD) 140 (>89) Glucose 100 (70-100) mg/dL Calcium 7.7 L (8.5-10.3) mg/dL Phosphorus 3.9 (2.5-4.6) mg/dL Magnesium 1.7 (1.7-2.8) mg/dL Lactate Dehydrogenase 126 (91-225) IU/L Nasal Screen MRSA (PCR) (NEGATIVE) Last Dose Date UNKNOWN Last Dose Time UNKNOWN Gentamicin Peak 5.9 (5.0-10.0) ug/mL Blood Type Antibody Screen Crossmatch IS Only 07/19/19 07/19/19 07/18/19 Range/Units 05:10 00:30 20:25 WBC 6.7 8.1 10.4 (4.8-10.8) x10^3/uL RBC 3.06 L 3.43 L 3.62 L (4.20-5.40) 10^6/uL Hgb 8.5 L 9.5 L 10.0 L (12.0-16.0) g/dL Hct 26.0 L 29.1 L 30.3 L (37.0-47.0) % MCV 85.0 84.8 83.7 (81.0-99.0) fL MCH 27.8 27.7 27.6 (27.0-31.0) pg MCHC 32.7 32.6 33.0 (32.0-36.0) g/dL RDW 17.3 H 17.1 H 17.2 H (12.0-15.0) % Plt Count 146 144 153 (130-450) 10^3/uL MPV 10.0 9.7 9.8 (7.9-10.8) fL Neut # (Auto) 4.8 (1.5-6.6) 10^3/uL Lymph # (Auto) 1.3 L (1.5-3.5) 10^3/uL [place] # (Auto) 0.5 (0.0-1.0) 10^3/uL Eos # (Auto) 0.0 (0.0-0.7) 10^3/uL Baso # (Auto) 0.0 (0.0-0.1) 10^3/uL Absolute Nucleated RBC 0.00 x10^3/uL Nucleated RBC % 0.0 /100WBC PT (9.9-12.6) secs INR (0.8-1.2) Sodium (135-145) mmol/L Potassium (3.5-5.0) mmol/L Chloride (101-111) mmol/L Carbon Dioxide (21-32) mmol/L Anion Gap (6-13) BUN (6-20) mg/dL Creatinine (0.4-1.0) mg/dL Estimated GFR (MDRD) (>89) Glucose (70-100) mg/dL Calcium (8.5-10.3) mg/dL Phosphorus (2.5-4.6) mg/dL Magnesium (1.7-2.8) mg/dL Lactate Dehydrogenase (91-225) IU/L Nasal Screen MRSA (PCR) (NEGATIVE) Last Dose Date Last Dose Time Gentamicin Peak (5.0-10.0) ug/mL Blood Type Antibody Screen Crossmatch IS Only 07/18/19 07/18/19 07/18/19 Range/Units 15:30 15:30 12:05 WBC 12.3 H (4.8-10.8) x10^3/uL RBC 3.99 L (4.20-5.40) 10^6/uL Hgb 11.1 L (12.0-16.0) g/dL Hct 33.5 L (37.0-47.0) % MCV 84.0 (81.0-99.0) fL MCH 27.8 (27.0-31.0) pg MCHC 33.1 (32.0-36.0) g/dL RDW 16.9 H (12.0-15.0) % Plt Count 157 (130-450) 10^3/uL MPV 10.0 (7.9-10.8) fL Neut # (Auto) 11.1 H (1.5-6.6) 10^3/uL Lymph # (Auto) 0.7 L (1.5-3.5) 10^3/uL [place] # (Auto) 0.2 (0.0-1.0) 10^3/uL Eos # (Auto) 0.1 (0.0-0.7) 10^3/uL Baso # (Auto) 0.0 (0.0-0.1) 10^3/uL Absolute Nucleated RBC 0.00 x10^3/uL Nucleated RBC % 0.0 /100WBC PT 13.7 H (9.9-12.6) secs INR 1.2 (0.8-1.2) Sodium (135-145) mmol/L Potassium (3.5-5.0) mmol/L Chloride (101-111) mmol/L Carbon Dioxide (21-32) mmol/L Anion Gap (6-13) BUN (6-20) mg/dL Creatinine (0.4-1.0) mg/dL Estimated GFR (MDRD) (>89) Glucose (70-100) mg/dL Calcium (8.5-10.3) mg/dL Phosphorus (2.5-4.6) mg/dL Magnesium (1.7-2.8) mg/dL Lactate Dehydrogenase (91-225) IU/L Nasal Screen MRSA (PCR) NEGATIVE (NEGATIVE) Last Dose Date Last Dose Time Gentamicin Peak (5.0-10.0) ug/mL Blood Type Antibody Screen Crossmatch IS Only 07/18/19 07/18/19 Range/Units 10:45 10:45 WBC (4.8-10.8) x10^3/uL RBC (4.20-5.40) 10^6/uL Hgb 8.2 L (12.0-16.0) g/dL Hct 25.7 L (37.0-47.0) % MCV (81.0-99.0) fL MCH (27.0-31.0) pg MCHC (32.0-36.0) g/dL RDW (12.0-15.0) % Plt Count (130-450) 10^3/uL MPV (7.9-10.8) fL Neut # (Auto) (1.5-6.6) 10^3/uL Lymph # (Auto) (1.5-3.5) 10^3/uL [place] # (Auto) (0.0-1.0) 10^3/uL Eos # (Auto) (0.0-0.7) 10^3/uL Baso # (Auto) (0.0-0.1) 10^3/uL Absolute Nucleated RBC x10^3/uL Nucleated RBC % /100WBC PT (9.9-12.6) secs INR (0.8-1.2) Sodium (135-145) mmol/L Potassium (3.5-5.0) mmol/L Chloride (101-111) mmol/L Carbon Dioxide (21-32) mmol/L Anion Gap (6-13) BUN (6-20) mg/dL Creatinine (0.4-1.0) mg/dL Estimated GFR (MDRD) (>89) Glucose (70-100) mg/dL Calcium (8.5-10.3) mg/dL Phosphorus (2.5-4.6) mg/dL Magnesium (1.7-2.8) mg/dL Lactate Dehydrogenase (91-225) IU/L Nasal Screen MRSA (PCR) (NEGATIVE) Last Dose Date Last Dose Time Gentamicin Peak (5.0-10.0) ug/mL Blood Type O POSITIVE Antibody Screen NEGATIVE Crossmatch IS Only See Detail - Imaging Results Radiology Imaging: positive: Final report received - Current Medications Current Medications: Current Medications Generic Name Dose Route Start Last Admin Trade Name Freq PRN Reason Stop Dose Admin Acetaminophen 1,000 mg 07/18/19 19:00 07/19/19 05:11 Tylenol PO 1,000 mg Q8H VIJAYA Administration Gregg Syrup 5 ml 07/18/19 14:00 07/19/19 06:19 PO 5 ml TID VIJAYA Administration Docusate Sodium 100 mg 07/18/19 21:00 07/18/19 20:40 Colace 100mg Capsule PO 100 mg BID VIJAYA Administration Clindamycin Phosphate 50 mls @ 50 mls/hr 07/18/19 08:00 07/19/19 03:20 Cleocin 900 Mg/50 Ml IV Infused Q6H VIJAYA Infusion Lactated Ringer's 1,000 mls @ 100 mls/hr 07/18/19 12:00 07/18/19 19:54 Lr IV 100 mls/hr .Q10H VIJAYA Administration Ampicillin Sodium/Sulbactam 100 mls @ 200 mls/hr 07/18/19 14:00 07/19/19 03:20 Sodium 3 gm/ Sodium Chloride IV Infused Q6H VIJAYA Infusion Gentamicin Sulfate 140 mg/ 103.5 mls @ 100 mls/hr 07/18/19 19:00 07/19/19 04: 30 Sodium Chloride IV Infused Q8H VIJAYA Infusion Magnesium Sulfate 2 gm in 50 mls @ 50 mls/hr 07/19/19 07:11 07/19/19 07:39 Magnesium Sulfate IV 07/19/19 08:10 50 mls/hr ONCE ONE Administration Ketorolac Tromethamine 30 mg 07/18/19 12:00 07/19/19 06:19 Toradol Inj (30mg) IVP 07/23/19 11:59 30 mg Q6H VIJAYA Administration Methylergonovine Maleate 0.2 mg 07/18/19 14:00 07/19/19 06:19 Methergine Inj PO 0.2 mg TID VIJAYA Administration Polyethylene Glycol 17 gm 07/18/19 09:00 07/18/19 08:26 Miralax PO Not Given DAILY VIJAYA Saccharomyces Boulardii 250 mg 07/18/19 17:00 07/18/19 17:21 Florastor PO 250 mg BIDWM VIJAYA Administration Simethicone 80 mg 07/18/19 14:00 07/19/19 06:19 Mylicon PO 80 mg TID VIJAYA Administration Sodium Chloride 10 ml 07/18/19 04:55 07/18/19 14:40 Normal Saline Flush 0.9% IVP 10 ml PRN PRN Administration NEEDED PER PROVIDER ORDERS Sodium Chloride 10 ml 07/18/19 09:00 07/19/19 00:13 Normal Saline Flush 0.9% IVP Not Given 0100,0900,1700 VIJAYA - Physical Exam General Appearance: positive: No acute distress, Alert Eyes Bilateral: positive: Normal inspection, PERRL Respiratory: positive: Chest non-tender, No respiratory distress, Breath sounds nml Cardiovascular: positive: Regular rate & rhythm, No murmur, No gallop Abdomen: positive: Non-tender, No organomegaly, Nml bowel sounds, No distention. negative: Tenderness Back: negative: CVA tenderness (R), CVA tenderness (L) Extremities: negative: Calf tenderness, Sanjiv's sign/cords Impression/Plan - Problem List Problem List: POD # 1 Progressing well Afebrile uterine tenderness resolved. Anemia Trnasfer ouit of ICU Continue antibiotics
--- NOTE | 2019-07-19 08:39 | PROVIDER PROGRESS NOTE ---
Subjective - Prog Note Date Prog Note Date: 07/19/19 Prog Note Time: 08:37 - Subjective Pt reports feeling: Improved Subjective: She reports feeling much better today. States pain is well controlled. Denies abdominal pain, nausea, vomiting. Has noticed small amounts of blood on her pad. She requested a regular diet overnight. Current Medications - Current Medications Current Medications: Active Medications Acetaminophen (Tylenol) 1,000 mg PO Q8H [facility] Last Admin: 07/19/19 05:11 Dose: 1,000 mg Gregg Syrup () 5 ml PO TID VIJAYA Last Admin: 07/19/19 06:19 Dose: 5 ml Docusate Sodium (Colace 100mg Capsule) 100 mg PO BID [facility] Last Admin: 07/18/19 20:40 Dose: 100 mg Clindamycin Phosphate (Cleocin 900 Mg/50 Ml) 50 mls @ 50 mls/hr IV Q6H [facility] Last Infusion: 07/19/19 03:20 Dose: Infused Sodium Chloride (Normal Saline 0.9%) 1,000 mls @ 0 mls/hr IV .Q0M [facility] Lactated Ringer's (Lr) 1,000 mls @ 100 mls/hr IV .Q10H [facility] Last Admin: 07/18/19 19:54 Dose: 100 mls/hr Ampicillin Sodium/Sulbactam (Sodium 3 gm/ Sodium Chloride) 100 mls @ 200 mls/hr IV Q6H [facility] Last Infusion: 07/19/19 03:20 Dose: Infused Gentamicin Sulfate 140 mg/ (Sodium Chloride) 103.5 mls @ 100 mls/hr IV Q8H [facility] Last Infusion: 07/19/19 04:30 Dose: Infused Ketorolac Tromethamine (Toradol Inj (30mg)) 30 mg IVP Q6H [facility] Stop: 07/23/19 11:59 Last Admin: 07/19/19 06:19 Dose: 30 mg Methylergonovine Maleate (Methergine Inj) 0.2 mg PO TID [facility] Last Admin: 07/19/19 06:19 Dose: 0.2 mg Ondansetron HCl (Zofran Inj) 4 mg IVP Q6HR PRN PRN Reason: Nausea / Vomiting Oxycodone HCl (Roxicodone) 5 mg PO Q4HR PRN PRN Reason: PAIN Polyethylene Glycol (Miralax) 17 gm PO DAILY [facility] Last Admin: 07/18/19 08:26 Dose: Not Given Saccharomyces Boulardii (Florastor) 250 mg PO BIDWM [facility] Last Admin: 07/18/19 17:21 Dose: 250 mg Simethicone (Mylicon) 80 mg PO TID [facility] Last Admin: 07/19/19 06:19 Dose: 80 mg Sodium Chloride (Normal Saline Flush 0.9%) 10 ml IVP PRN PRN PRN Reason: NEEDED PER PROVIDER ORDERS Last Admin: 07/18/19 14:40 Dose: 10 ml Sodium Chloride (Normal Saline Flush 0.9%) 10 ml IVP 0100,0900,1700 [facility] Last Admin: 07/19/19 00:13 Dose: Not Given Pnv No.95/Ferrous Fum/Folic AC [ Caplet] 1 each PO DAILY 07/18/19 Objective - Vital Signs/Intake & Output Vital Signs: Vital Signs x48h Temp Pulse Resp BP Pulse Ox 07/19/19 07:48 36.9 C 95 14 07/19/19 07:00 84 13 117/81 H 99 07/19/19 06:00 78 17 108/64 100 07/19/19 05:00 36.6 C 56 L 14 109/64 100 07/19/19 04:00 55 L 14 104/67 99 07/19/19 03:00 68 15 117/73 99 07/19/19 02:00 61 15 125/80 97 07/19/19 01:00 70 17 115/65 98 Intake & Output: Intake & Output 07/16/19 07/17/19 07/18/19 07/19/19 23:59 23:59 23:59 23:59 Intake Total 3963.833 453.5 Output Total 1939 250 Balance 2024.833 203.5 - Objective General Appearance: positive: No acute distress, Alert Eyes Bilateral: positive: Normal inspection ENT: positive: ENT inspection nml Neck: positive: Nml inspection Respiratory: positive: No respiratory distress, Breath sounds nml. negative: Wheezes, Rales, Rhonchi Cardiovascular: positive: Regular rate & rhythm, No murmur. negative: Tachycardia, Bradycardia, Systolic murmur Abdomen: positive: Non-tender, No distention. negative: Tenderness, Guarding, Rebound Skin: positive: Color nml, No rash, Warm, Dry Extremities: positive: No pedal edema. negative: Pedal edema Neurologic/Psychiatric: positive: Oriented x3, Motor nml. negative: Disoriented to person, Disoriented to place, Disoriented to time - Lab Results Fish Bones: 07/19/19 05:10 07/19/19 05:10 Other Labs: Lab Results x24hrs 07/19/19 07/19/19 07/19/19 Range/Units 05:10 05:10 05:10 WBC (4.8-10.8) x10^3/uL RBC (4.20-5.40) 10^6/uL Hgb (12.0-16.0) g/dL Hct (37.0-47.0) % MCV (81.0-99.0) fL MCH (27.0-31.0) pg MCHC (32.0-36.0) g/dL RDW (12.0-15.0) % Plt Count (130-450) 10^3/uL MPV (7.9-10.8) fL Neut # (Auto) (1.5-6.6) 10^3/uL Lymph # (Auto) (1.5-3.5) 10^3/uL [place] # (Auto) (0.0-1.0) 10^3/uL Eos # (Auto) (0.0-0.7) 10^3/uL Baso # (Auto) (0.0-0.1) 10^3/uL Absolute Nucleated RBC x10^3/uL Nucleated RBC % /100WBC PT (9.9-12.6) secs INR (0.8-1.2) Sodium 141 (135-145) mmol/L Potassium 3.3 L (3.5-5.0) mmol/L Chloride 111 (101-111) mmol/L Carbon Dioxide 23 (21-32) mmol/L Anion Gap 7.0 (6-13) BUN 7 (6-20) mg/dL Creatinine 0.5 (0.4-1.0) mg/dL Estimated GFR (MDRD) 140 (>89) Glucose 100 (70-100) mg/dL Calcium 7.7 L (8.5-10.3) mg/dL Phosphorus 3.9 (2.5-4.6) mg/dL Magnesium 1.7 (1.7-2.8) mg/dL Lactate Dehydrogenase 126 (91-225) IU/L Nasal Screen MRSA (PCR) (NEGATIVE) Last Dose Date UNKNOWN Last Dose Time UNKNOWN Gentamicin Peak 5.9 (5.0-10.0) ug/mL Blood Type Antibody Screen Crossmatch IS Only 07/19/19 07/19/19 07/18/19 Range/Units 05:10 00:30 20:25 WBC 6.7 8.1 10.4 (4.8-10.8) x10^3/uL RBC 3.06 L 3.43 L 3.62 L (4.20-5.40) 10^6/uL Hgb 8.5 L 9.5 L 10.0 L (12.0-16.0) g/dL Hct 26.0 L 29.1 L 30.3 L (37.0-47.0) % MCV 85.0 84.8 83.7 (81.0-99.0) fL MCH 27.8 27.7 27.6 (27.0-31.0) pg MCHC 32.7 32.6 33.0 (32.0-36.0) g/dL RDW 17.3 H 17.1 H 17.2 H (12.0-15.0) % Plt Count 146 144 153 (130-450) 10^3/uL MPV 10.0 9.7 9.8 (7.9-10.8) fL Neut # (Auto) 4.8 (1.5-6.6) 10^3/uL Lymph # (Auto) 1.3 L (1.5-3.5) 10^3/uL [place] # (Auto) 0.5 (0.0-1.0) 10^3/uL Eos # (Auto) 0.0 (0.0-0.7) 10^3/uL Baso # (Auto) 0.0 (0.0-0.1) 10^3/uL Absolute Nucleated RBC 0.00 x10^3/uL Nucleated RBC % 0.0 /100WBC PT (9.9-12.6) secs INR (0.8-1.2) Sodium (135-145) mmol/L Potassium (3.5-5.0) mmol/L Chloride (101-111) mmol/L Carbon Dioxide (21-32) mmol/L Anion Gap (6-13) BUN (6-20) mg/dL Creatinine (0.4-1.0) mg/dL Estimated GFR (MDRD) (>89) Glucose (70-100) mg/dL Calcium (8.5-10.3) mg/dL Phosphorus (2.5-4.6) mg/dL Magnesium (1.7-2.8) mg/dL Lactate Dehydrogenase (91-225) IU/L Nasal Screen MRSA (PCR) (NEGATIVE) Last Dose Date Last Dose Time Gentamicin Peak (5.0-10.0) ug/mL Blood Type Antibody Screen Crossmatch IS Only 07/18/19 07/18/19 07/18/19 Range/Units 15:30 15:30 12:05 WBC 12.3 H (4.8-10.8) x10^3/uL RBC 3.99 L (4.20-5.40) 10^6/uL Hgb 11.1 L (12.0-16.0) g/dL Hct 33.5 L (37.0-47.0) % MCV 84.0 (81.0-99.0) fL MCH 27.8 (27.0-31.0) pg MCHC 33.1 (32.0-36.0) g/dL RDW 16.9 H (12.0-15.0) % Plt Count 157 (130-450) 10^3/uL MPV 10.0 (7.9-10.8) fL Neut # (Auto) 11.1 H (1.5-6.6) 10^3/uL Lymph # (Auto) 0.7 L (1.5-3.5) 10^3/uL [place] # (Auto) 0.2 (0.0-1.0) 10^3/uL Eos # (Auto) 0.1 (0.0-0.7) 10^3/uL Baso # (Auto) 0.0 (0.0-0.1) 10^3/uL Absolute Nucleated RBC 0.00 x10^3/uL Nucleated RBC % 0.0 /100WBC PT 13.7 H (9.9-12.6) secs INR 1.2 (0.8-1.2) Sodium (135-145) mmol/L Potassium (3.5-5.0) mmol/L Chloride (101-111) mmol/L Carbon Dioxide (21-32) mmol/L Anion Gap (6-13) BUN (6-20) mg/dL Creatinine (0.4-1.0) mg/dL Estimated GFR (MDRD) (>89) Glucose (70-100) mg/dL Calcium (8.5-10.3) mg/dL Phosphorus (2.5-4.6) mg/dL Magnesium (1.7-2.8) mg/dL Lactate Dehydrogenase (91-225) IU/L Nasal Screen MRSA (PCR) NEGATIVE (NEGATIVE) Last Dose Date Last Dose Time Gentamicin Peak (5.0-10.0) ug/mL Blood Type Antibody Screen Crossmatch IS Only 07/18/19 07/18/19 Range/Units 10:45 10:45 WBC (4.8-10.8) x10^3/uL RBC (4.20-5.40) 10^6/uL Hgb 8.2 L (12.0-16.0) g/dL Hct 25.7 L (37.0-47.0) % MCV (81.0-99.0) fL MCH (27.0-31.0) pg MCHC (32.0-36.0) g/dL RDW (12.0-15.0) % Plt Count (130-450) 10^3/uL MPV (7.9-10.8) fL Neut # (Auto) (1.5-6.6) 10^3/uL Lymph # (Auto) (1.5-3.5) 10^3/uL [place] # (Auto) (0.0-1.0) 10^3/uL Eos # (Auto) (0.0-0.7) 10^3/uL Baso # (Auto) (0.0-0.1) 10^3/uL Absolute Nucleated RBC x10^3/uL Nucleated RBC % /100WBC PT (9.9-12.6) secs INR (0.8-1.2) Sodium (135-145) mmol/L Potassium (3.5-5.0) mmol/L Chloride (101-111) mmol/L Carbon Dioxide (21-32) mmol/L Anion Gap (6-13) BUN (6-20) mg/dL Creatinine (0.4-1.0) mg/dL Estimated GFR (MDRD) (>89) Glucose (70-100) mg/dL Calcium (8.5-10.3) mg/dL Phosphorus (2.5-4.6) mg/dL Magnesium (1.7-2.8) mg/dL Lactate Dehydrogenase (91-225) IU/L Nasal Screen MRSA (PCR) (NEGATIVE) Last Dose Date Last Dose Time Gentamicin Peak (5.0-10.0) ug/mL Blood Type O POSITIVE Antibody Screen NEGATIVE Crossmatch IS Only See Detail ABX Reporting Has patient been on IV antibiotics over the past 48 hours?: No Sepsis Event Note (H) - Evaluation Current Stage of Sepsis: Sepsis Possible source of Sepsis: positive: Genitourinary - Sepsis Criteria Sepsis Criteria: Recorded Temperature greater than 38.3C or Less than 36C, Recorded Heart Rate greater than 90 bpm Assessment/Plan - Problem List (1) Acute blood loss anemia Impression: She had acute blood loss anemia during her D&C where she had 2L of EBL. Was transfused 2U PRBC. Hemoglobin has since been slowly trending down but there are no signs of significant bleeding and the bleeding evident on her pads is minimal. She has remain hemodynamically stable. - Recheck CBC this afternoon - No indication for transfusion at this time - I spoke with Dr. Heath, we both agree that she is stable to be transferred to the floors under the Disaster Response Director service (2) Sepsis Impression: Secondary to endometritis. Presented with fevers, tachycardia, mild leukocytosis. This has since resolved. No longer febrile on current antibiotics. Resolved. - She likely no longer needs the Unasyn but should be continued on Clindamycin and Gentamicin (3) endometritis Impression: This is the source of her sepsis and is improving as she is no longer febrile and her leukocytosis resolved. - Continue Clindamycin and Gentamicin
[2019-07-19] MEDS: DOCUSATE SODIUM 100 MG CAPSULE PO SCH ×2 (09:01→21:13)
[2019-07-19] MEDS: SACCHAROMYCES BOULARDII 250 MG CAPSULE PO SCH ×2 (09:01→17:05)
[2019-07-19] MEDS: POLYETHYLENE GLYCOL 3350 17 GM PACKET PO SCH (09:20)
[2019-07-19 10:32] LABS: HGB - HEMOGLOBIN 9.7 g/dL (12.0-16.0); MEAN CORPUSCULAR HEMOGLOBIN 27.6 pg (27.0-31.0); MEAN CORPUSCULAR HGB CONC 32.6 g/dL (32.0-36.0); MEAN CORPUSCULAR VOLUME 84.7 fL (81.0-99.0); MEAN PLATELET VOLUME 9.6 fL (7.9-10.8); RED BLOOD COUNT 3.52 10^6/uL (4.20-5.40); RED CELL DISTRIBUTION WIDTH 17.4 % (12.0-15.0); WHITE BLOOD COUNT 7.9 x10^3/uL (4.8-10.8)
[2019-07-19] MEDS: AMOX/CLAV 875 MG/125 MG TABLET PO SCH (21:13)
[2019-07-20] MEDS: SODIUM CHLORIDE FLUSH 0.9% 10 ML SYRINGE IVP SCH ×3 (01:17→18:11)
[2019-07-20] MEDS: CLINDAMYCIN 900 MG/50 ML 50 ML IV SCH ×4 (01:55→18:11)
[2019-07-20] MEDS: ACETAMINOPHEN 500 MG TABLET PO SCH ×3 (03:17→18:11)
[2019-07-20] MEDS: SODIUM CHLORIDE 0.9% IV SCH ×3 (03:20→19:14)
[2019-07-20] MEDS: GENTAMICIN IV SCH ×3 (03:20→19:14)
[2019-07-20] MEDS: SIMETHICONE CHEW 80 MG TABLET PO SCH ×3 (06:12→21:43)
[2019-07-20] MEDS: CHERRY SYRUP 10 ML UDC PO SCH ×3 (06:13→21:43)
[2019-07-20] MEDS: METHYLERGONOVINE 0.2 MG/ML AMP PO SCH ×3 (06:14→21:43)
[2019-07-20] MEDS: KETOROLAC 30 MG/ML VIAL IVP SCH ×3 (06:14→18:11)
[2019-07-20] MEDS: AMOX/CLAV 875 MG/125 MG TABLET PO SCH ×2 (08:34→21:43)
[2019-07-20] MEDS: DOCUSATE SODIUM 100 MG CAPSULE PO SCH ×2 (08:34→21:44)
[2019-07-20] MEDS: SACCHAROMYCES BOULARDII 250 MG CAPSULE PO SCH ×2 (08:38→18:11)
[2019-07-20] MEDS: POLYETHYLENE GLYCOL 3350 17 GM PACKET PO SCH (08:41)
--- NOTE | 2019-07-20 08:50 | PROVIDER PROGRESS NOTE ---
Subjective - General Admit Date: 07/18/19 Procedure Date: 07/18/19 Post Op Days: 2 Procedure Performed: Sharp and Suction D&C - Review of Systems General: positive: No symptoms (Pain 0/10, scant bleeding stool soft), Fever HEENT: positive: No symptoms Pulmonary: positive: No symptoms Cardiovascular: positive: No symptoms Gastrointestinal: positive: No symptoms, Flatus Genitourinary: positive: No symptoms Musculoskeletal: positive: No symptoms All Other Systems: positive: Reviewed and negative Objective - Patient Data Reviewed Vital Signs: Yes Vital Signs: Vital Signs x48h Temp Pulse Resp BP Pulse Ox 07/20/19 07:56 36.5 C 72 14 115/50 L 100 07/20/19 03:55 36.4 C L 71 16 122/73 98 Weight: Weight 07/18/19 07/19/19 07/20/19 23:59 23:59 23:59 Weight (kg) 98 kg Intake & Output: Intake and Output Totals x24h 07/18/19 07/19/19 07/20/19 23:59 23:59 23:59 Intake Total 3963.833 3475.5 153.5 Output Total 1939 250 Balance 2024.833 3225.5 153.5 - Lab Results Lab Results: 07/19/19 10:22 07/19/19 05:10 Other Lab Results: Lab Results x24hrs 07/19/19 07/19/19 07/18/19 Range/Units 10:22 10:22 10:45 WBC 7.9 (4.8-10.8) x10^3/uL RBC 3.52 L (4.20-5.40) 10^6/uL Hgb 9.7 L (12.0-16.0) g/dL Hct 29.8 L (37.0-47.0) % MCV 84.7 (81.0-99.0) fL MCH 27.6 (27.0-31.0) pg MCHC 32.6 (32.0-36.0) g/dL RDW 17.4 H (12.0-15.0) % Plt Count 165 (130-450) 10^3/uL MPV 9.6 (7.9-10.8) fL Last Dose Date UNK Last Dose Time UNK Gentamicin Trough 1.0 ug/mL Blood Type O POSITIVE Antibody Screen NEGATIVE Crossmatch IS Only See Detail - Current Medications Current Medications: Current Medications Generic Name Dose Route Start Last Admin Trade Name Viral PRN Reason Stop Dose Admin Acetaminophen 1,000 mg 07/18/19 19:00 07/20/19 03:17 Tylenol PO 1,000 mg Q8H VIJAYA Administration Amoxicillin/Clavulanate Potassium 1 tab 07/19/19 21:00 07/20/19 08:34 Augmentin 875/125 PO 1 tab BID VIJAYA Administration Gregg Syrup 5 ml 07/18/19 14:00 07/20/19 06:13 PO 5 ml TID VIJAYA Administration Docusate Sodium 100 mg 07/18/19 21:00 07/20/19 08:34 Colace 100mg Capsule PO 100 mg BID VIJAYA Administration Clindamycin Phosphate 50 mls @ 50 mls/hr 07/18/19 08:00 07/20/19 08:34 Cleocin 900 Mg/50 Ml IV 50 mls/hr Q6H VIJAYA Administration Gentamicin Sulfate 140 mg/ 103.5 mls @ 100 mls/hr 07/18/19 19:00 07/20/19 05:09 Sodium Chloride IV Infused Q8H VIJAYA Infusion Ketorolac Tromethamine 30 mg 07/18/19 12:00 07/20/19 06:14 Toradol Inj (30mg) IVP 07/23/19 11:59 30 mg Q6H VIJAYA Administration Methylergonovine Maleate 0.2 mg 07/18/19 14:00 07/20/19 06:14 Methergine Inj PO 0.2 mg TID VIJAYA Administration Polyethylene Glycol 17 gm 07/18/19 09:00 07/20/19 08:41 Miralax PO Not Given DAILY VIJAYA Saccharomyces Boulardii 250 mg 07/18/19 17:00 07/20/19 08:38 Florastor PO 250 mg BIDWM VIJAYA Administration Simethicone 80 mg 07/18/19 14:00 07/20/19 06:12 Mylicon PO 80 mg TID VIJAYA Administration Sodium Chloride 10 ml 07/18/19 04:55 07/18/19 14:40 Normal Saline Flush 0.9% IVP 10 ml PRN PRN Administration NEEDED PER PROVIDER ORDERS Sodium Chloride 10 ml 07/18/19 09:00 07/20/19 08:35 Normal Saline Flush 0.9% IVP Not Given 0100,0900,1700 VIJAYA - Physical Exam General Appearance: positive: No acute distress, Alert Respiratory: positive: Chest non-tender, No respiratory distress, Breath sounds nml Cardiovascular: positive: Regular rate & rhythm, No murmur, No gallop Abdomen: positive: Non-tender, No organomegaly, Nml bowel sounds, Tenderness (mild supra pubic tenderness) Back: negative: CVA tenderness (R), CVA tenderness (L) Extremities: positive: Other (SCD up and running). negative: Calf tenderness, Sanjiv's sign/cords Neurologic/Psychiatric: positive: Oriented x3 Impression/Plan - Problem List Problem List: POD and antibiotics dsay #2 progressing. will continue for 72 hours Anemia stabalising. CBC this AM. vaginal bleeding stop methergin.
[2019-07-20 09:12] LABS: BASOPHILS % (AUTO) 0.4 %; EOSINOPHILS # (AUTO) 0.4 10^3/uL (0.0-0.7); EOSINOPHILS % (AUTO) 3.6 %; HGB - HEMOGLOBIN 9.3 g/dL (12.0-16.0); LYMPHOCYTES # (AUTO) 1.9 10^3/uL (1.5-3.5); LYMPHOCYTES % (AUTO) 19.3 %; MEAN CORPUSCULAR HEMOGLOBIN 27.4 pg (27.0-31.0); MEAN CORPUSCULAR HGB CONC 31.5 g/dL (32.0-36.0); MEAN CORPUSCULAR VOLUME 86.8 fL (81.0-99.0); MEAN PLATELET VOLUME 9.6 fL (7.9-10.8); MONOCYTES # (AUTO) 0.4 10^3/uL (0.0-1.0); MONOCYTES % (AUTO) 3.6 %; PLT - PLATELET COUNT 160 10^3/uL (130-450); RED CELL DISTRIBUTION WIDTH 17.5 % (12.0-15.0); WHITE BLOOD COUNT 9.8 x10^3/uL (4.8-10.8)
[2019-07-20] MEDS ORDERED: CLINDAMYCIN 150 MG CAPSULE PO SCH ×2 (18:00→20:00)
[2019-07-21] MEDS: SODIUM CHLORIDE FLUSH 0.9% 10 ML SYRINGE IVP SCH ×2 (00:30→08:39)
[2019-07-21 00:33] VITALS: BP 118/67
[2019-07-21] MEDS: CLINDAMYCIN 900 MG/50 ML 50 ML IV SCH ×2 (00:34→06:28)
[2019-07-21] MEDS: KETOROLAC 30 MG/ML VIAL IVP SCH ×2 (00:39→06:21)
[2019-07-21] MEDS: ACETAMINOPHEN 500 MG TABLET PO SCH (02:53)
[2019-07-21] MEDS: SODIUM CHLORIDE 0.9% IV SCH (02:55)
[2019-07-21] MEDS: GENTAMICIN IV SCH (02:55)
[2019-07-21] MEDS: CHERRY SYRUP 10 ML UDC PO SCH (06:23)
[2019-07-21] MEDS: METHYLERGONOVINE 0.2 MG/ML AMP PO SCH (06:23)
[2019-07-21] MEDS: SIMETHICONE CHEW 80 MG TABLET PO SCH (06:30)
[2019-07-21] MEDS: SACCHAROMYCES BOULARDII 250 MG CAPSULE PO SCH (08:38)
[2019-07-21] MEDS: DOCUSATE SODIUM 100 MG CAPSULE PO SCH (08:38)
[2019-07-21] MEDS: AMOX/CLAV 875 MG/125 MG TABLET PO SCH (08:38)
[2019-07-21] MEDS: POLYETHYLENE GLYCOL 3350 17 GM PACKET PO SCH (08:39)
--- NOTE | 2019-07-21 09:10 | PROVIDER PROGRESS NOTE ---
Subjective - General Admit Date: 07/18/19 Procedure Date: 07/18/19 Post Op Days: 3 Procedure Performed: Sharp and Suction D&C - Review of Systems General: positive: No symptoms (Pain 0/10, scant bleeding, stool soft. wants to go home), Fever HEENT: positive: No symptoms Pulmonary: positive: No symptoms Cardiovascular: positive: No symptoms Gastrointestinal: positive: No symptoms, Flatus Genitourinary: positive: No symptoms Musculoskeletal: positive: No symptoms All Other Systems: positive: Reviewed and negative Objective - Patient Data Reviewed Vital Signs: Yes Intake & Output: Intake and Output Totals x24h 07/19/19 07/20/19 07/21/19 23:59 23:59 23:59 Intake Total 3475.5 1518.5 423.5 Output Total 250 Balance 3225.5 1518.5 423.5 - Lab Results Lab Results: 07/20/19 09:02 07/19/19 05:10 Other Lab Results: Lab Results x24hrs 07/20/19 07/18/19 Range/Units 09:02 10:45 WBC 9.8 (4.8-10.8) x10^3/uL RBC 3.40 L (4.20-5.40) 10^6/uL Hgb 9.3 L (12.0-16.0) g/dL Hct 29.5 L (37.0-47.0) % MCV 86.8 (81.0-99.0) fL MCH 27.4 (27.0-31.0) pg MCHC 31.5 L (32.0-36.0) g/dL RDW 17.5 H (12.0-15.0) % Plt Count 160 (130-450) 10^3/uL MPV 9.6 (7.9-10.8) fL Neut # (Auto) 7.0 H (1.5-6.6) 10^3/uL Lymph # (Auto) 1.9 (1.5-3.5) 10^3/uL [place] # (Auto) 0.4 (0.0-1.0) 10^3/uL Eos # (Auto) 0.4 (0.0-0.7) 10^3/uL Baso # (Auto) 0.0 (0.0-0.1) 10^3/uL Absolute Nucleated RBC 0.00 x10^3/uL Nucleated RBC % 0.0 /100WBC Blood Type O POSITIVE Antibody Screen NEGATIVE Crossmatch IS Only See Detail - Current Medications Current Medications: Current Medications Generic Name Dose Route Start Last Admin Trade Name Freq PRN Reason Stop Dose Admin Acetaminophen 1,000 mg 07/18/19 19:00 07/21/19 02:53 Tylenol PO 1,000 mg Q8H VIJAYA Administration Amoxicillin/Clavulanate Potassium 1 tab 07/19/19 21:00 07/21/19 08:38 Augmentin 875/125 PO 1 tab BID VIJAYA Administration Gregg Syrup 5 ml 07/18/19 14:00 07/21/19 06:23 PO 5 ml TID VIJAYA Administration Docusate Sodium 100 mg 07/18/19 21:00 07/21/19 08:38 Colace 100mg Capsule PO 100 mg BID VIJAYA Administration Gentamicin Sulfate 140 mg/ 103.5 mls @ 100 mls/hr 07/18/19 19:00 07/21/19 04:00 Sodium Chloride IV Infused Q8H VIJAYA Infusion Clindamycin Phosphate 50 mls @ 50 mls/hr 07/20/19 18:00 07/21/19 08:06 Cleocin 900 Mg/50 Ml IV Infused Q6HR VIJAYA Infusion Ketorolac Tromethamine 30 mg 07/18/19 12:00 07/21/19 06:21 Toradol Inj (30mg) IVP 07/23/19 11:59 Not Given Q6H VIJAYA Methylergonovine Maleate 0.2 mg 07/18/19 14:00 07/21/19 06:23 Methergine Inj PO 0.2 mg TID VIJAYA Administration Polyethylene Glycol 17 gm 07/18/19 09:00 07/21/19 08:39 Miralax PO Not Given DAILY VIJAYA Saccharomyces Boulardii 250 mg 07/18/19 17:00 07/21/19 08:38 Florastor PO 250 mg BIDWM VIJAYA Administration Simethicone 80 mg 07/18/19 14:00 07/21/19 06:30 Mylicon PO 80 mg TID VIJAYA Administration Sodium Chloride 10 ml 07/18/19 04:55 07/18/19 14:40 Normal Saline Flush 0.9% IVP 10 ml PRN PRN Administration NEEDED PER PROVIDER ORDERS Sodium Chloride 10 ml 07/18/19 09:00 07/21/19 08:39 Normal Saline Flush 0.9% IVP 10 ml 0100,0900,1700 [facility] Administration - Physical Exam General Appearance: positive: No acute distress, Alert Respiratory: positive: Chest non-tender, No respiratory distress, Breath sounds nml Cardiovascular: positive: Regular rate & rhythm, No murmur, No gallop Abdomen: positive: Non-tender (uterus is compleatly nontender), No organomegaly, Nml bowel sounds Back: negative: CVA tenderness (R), CVA tenderness (L) Extremities: positive: Sanjiv's sign/cords. negative: Calf tenderness Neurologic/Psychiatric: positive: Oriented x3 Impression/Plan - Problem List Problem List: S/.P D&C with hemorrhagia. anemia stable rebounding pain compleatly resolved Discharge meds clinda 900 mg augmentin 500/125 Iron sulfate 325 mg colace 100 mg RTC 1-2 weeks
--- NOTE | 2019-07-21 09:14 | Discharge Plan ---
Discharge Plan Problem Reviewed?: Yes Disposition: 01 Home, Self Care Condition: Good Diet: Regular Shower Restrictions: No Driving Restrictions: No Instruction Topics: Clindamycin injection, Saccharomyces boulardii Florastor oral dosage forms, Ketorolac injection, Ampicillin injection, Methylergonovine injection, Gentamicin Sodium Chloride Solution for injection No Smoking: If you smoke, Please STOP! Call for help.
--- NOTE | 2019-07-29 12:52 | DISCHARGE SUMMARY ---
Physician: Doni Heath MD DATE OF ADMISSION: 07/18/2019 DATE OF DISCHARGE: 07/21/2019 ADMITTING DIAGNOSES 1. A 38-year-old G2, P1, AB1 female. 2. Status post at 17 weeks. 3. Endomyometritis. 4. Retained products of conception. DISCHARGE DIAGNOSES 1. A 38-year-old G2, P1, AB1 female. 2. Status post at 17 weeks. 3. Endomyometritis. 4. Retained products of conception. 5. Intraoperative hemorrhage. PROCEDURES 1. Sharp and suction D and C. 2. Transfusion 2 units of O negative blood. PRESENTING HISTORY: Patient is a 38-year-old G2, P1, AB1 female who recently had a 17-week loss, which was induced with Cervidil. Her postoperative course was unremarkable. She passed both placenta and fetus. She was discharged to home and did quite well until the evening prior to admission, at which time she developed chills, fevers and rigors. She denies any heavy bleeding. LABORATORIES: Preop her white count was 10.4, hemoglobin was 10 and hematocrit was 30, platelets were 153. Immediately postoperatively, her hemoglobin following transfusion of 2 units of O negative, was 9.5. White count, remained afebrile. The hemoglobin reached a diana of 8.5 that same day. Her platelets diana was also 146. Upon day before discharge, her white count was 9.8, her hemoglobin rebounded to 9.3 with hematocrit of 39.5, platelets were 160. Her electrolytes showed hypokalemia at 3.3. HOSPITAL COURSE: Patient was admitted and taken to the operating room. She had informed consent prior to her procedure. She had an ultrasound done preoperatively, which showed evidence of a 3 x 5 cm amount of tissue in the uterus. She was taken to the operating room, at which time a sharp and suction D and C were performed. Immediately following the procedure, she developed very immense hemorrhage. Her total measured blood loss was 2 liters. She was treated with prostaglandins, Methergine, as well as TXA. Her bleeding did cease and she was sent from the operating room to the ICU for close monitoring. She was placed on gentamicin, as well as clindamycin. Because of her temperatures, which did not resolve immediately, she was added Unasyn. She defervesced. Her white counts remained normal. Her tenderness resolved. She was discharged to home on the third day in the hospital on medications of Augmentin as well as clindamycin. She is instructed to follow up in the clinic in 1 week. TD: 07/29/2019 12:10 MTDD
== END 2019-07-21 09:50 | disposition home or self-care (01) | DRG 770 ==
LOC: ED 00:27 → MS3 04:56 → MS2 05:50 → OBSVTOIN 11:47 → ICU 12:18 → MS2 07-19 09:27
PROVIDERS: ADMIT Obstetrics & Gynecology; ATTEND Obstetrics & Gynecology
PROC: 10D17ZZ Extraction of Products of Conception, Retained, Via Natural or Artificial Opening (ICD-10-PCS; principal; 2019-07-18 10:00)
DX: O03.37 Sepsis following incomplete spontaneous abortion (principal); A41.9 Sepsis, unspecified organism; N99.61 Intraoperative hemorrhage and hematoma of a genitourinary system organ or structure complicating a genitourinary system procedure; D62 Acute posthemorrhagic anemia; E87.6 Hypokalemia; D25.9 Leiomyoma of uterus, unspecified; Z87.891 Personal history of nicotine dependence
CPT/HCPCS: 36415; 59812; 76830; 76856; 80048; 80053; 80170; 81001; 83010; 83605; 83615; 83690; 83735; 84100; 84702; 85014; 85018; 85025; 85027; 85610; 86850; 86900; 86901; 86920; 87040; 87150; 93975; 96361; 96365; 96366; 96368; 99284; 99285; A9270; G0378; J0131; J1170; J1580; J7120; P9016; 81003; 87086

== ENCOUNTER 2019-08-17 10:24 | Outpatient (CLI) | payer OTHER ==
[2019-08-17 10:46] LABS: BASOPHILS % (AUTO) 0.7 %; EOSINOPHILS # (AUTO) 0.2 10^3/uL (0.0-0.7); HGB - HEMOGLOBIN 11.5 g/dL (12.0-16.0); LYMPHOCYTES # (AUTO) 1.7 10^3/uL (1.5-3.5); LYMPHOCYTES % (AUTO) 30.9 %; MEAN CORPUSCULAR HGB CONC 31.6 g/dL (32.0-36.0); MEAN CORPUSCULAR VOLUME 82.4 fL (81.0-99.0); MEAN PLATELET VOLUME 10.5 fL (7.9-10.8); MONOCYTES # (AUTO) 0.5 10^3/uL (0.0-1.0); MONOCYTES % (AUTO) 8.7 %; NEUTROPHILS # (AUTO) 3.1 10^3/uL (1.5-6.6); NEUTROPHILS % (AUTO) 56.3 %; PLT - PLATELET COUNT 270 10^3/uL (130-450); RED BLOOD COUNT 4.42 10^6/uL (4.20-5.40); RED CELL DISTRIBUTION WIDTH 14.2 % (12.0-15.0); WHITE BLOOD COUNT 5.4 x10^3/uL (4.8-10.8)
== END 2019-08-17 10:25 | disposition home or self-care (01) ==
LOC: LAB 10:24
PROVIDERS: ATTEND Obstetrics & Gynecology
DX: O36.4XX1 Maternal care for intrauterine death, fetus 1 (principal); D64.9 Anemia, unspecified
CPT/HCPCS: 36415; 85025

== ENCOUNTER 2020-02-02 12:58 | Outpatient (CLI) | payer OTHER | END 2020-02-02 12:59 | disposition EMS.NT | LOC: EMS 12:58 | PROVIDERS: ATTEND Surgery | DX: R42 Dizziness and giddiness (principal) ==

== ENCOUNTER 2020-02-02 13:51 | Emergency (ER) | payer OTHER ==
--- NOTE | 2020-02-02 17:09 | ED Physician Documentation ---
History of Present Illness - Stated complaint Stated Complaint: DIZZY - Chief complaint Chief Complaint: General - History obtained from History obtained from: Patient (39-year-old female presents today via EMS with chief complaint of dizziness. She states she was in a grocery store today walking around when she developed dizziness, spinning inside of her head, felt lightheaded without nausea or diaphoresis. She decided that maybe she had low blood sugar as she had not eaten anything, so she went about a drink. However she went to her car after drinking the juice she continued to have dizziness so she called a friend of hers who arrived to be with her while she waited for EMS. EMS arrived they checked her out and stated to her that her vital signs and EKG looked normal, but by that time she had felt much better. they presently brought her in for further evaluation. Presently she denies any lightheadedness dizziness spinning inside of her head, chest pain, shortness of breath,loss or change of vision, or headache.) PD PAST MEDICAL HISTORY - Past Medical History Cardiovascular: None Respiratory: None Neuro: None Endocrine/Autoimmune: None GI: None SENIOR BUSINESS ANALYST: Miscarriage(s) : None HEENT: None Psych: None Musculoskeletal: None Derm: None - Past Surgical History Past Surgical History: No /SENIOR BUSINESS ANALYST: Dilation and currettage Derm: Other - Allergies Allergies/Adverse Reactions: Allergies Allergy/AdvReac Type Severity Reaction Status Date / Time No Known Drug Allergies Allergy Verified 07/18/19 00:48 - Social History Does the pt smoke?: No Smoking Status: Never smoker Does the pt drink ETOH?: No Does the pt have substance abuse?: No - Immunizations Immunizations are current?: Yes - POLST Patient has POLST: No Results - Vitals Vitals: Vital Signs - 24 hr 02/02/20 02/02/20 02/02/20 14:04 14:10 17:13 Temperature 36.6 C 37.1 C Heart Rate 92 86 94 Respiratory 20 16 16 Rate Blood Pressure 143/100 H 140/88 H 135/75 H O2 Saturation 100 100 98 Oxygen O2 Source Room air PD MEDICAL DECISION MAKING - ED course Complexity details: reviewed results, re-evaluated patient, d/w patient Departure - Departure Disposition: 01 Home, Self Care Clinical Impression: Dizziness Condition: Good Instructions: ED Dizziness UKO Comments: Reviewed the results of the patient's EKG with her, Her vital signs remained stable she is asymptomatic since arriving to the ED. Discussed possible causes as being cardiac. Advised patient to follow-up with her PCP later this week for further evaluation. Discussed with the patient that this could be cardiac in nature tachyarrhythmia and she may need a Holter monitor to figure out what exactly is going on. Should she develop the symptoms again she is to check her heart rate to figure out if is going fast or slow. Encouraged her to continue to stay hydrated. Patient verbalizes understanding, all patient questions answered today. Discharge Date/Time: 02/02/20 17:20
[2020-02-02 17:14] VITALS: BP 135/75
== END 2020-02-02 17:20 | disposition home or self-care (01) ==
LOC: EDUNIT# → ED 13:51
DX: R42 Dizziness and giddiness (principal)
CPT/HCPCS: 93005; 99281; 99283